=== PATIENT | female | born 1950 | race Caucasian/White ===

== ENCOUNTER 2017-06-01 14:03 | Observation (INO) ==
--- NOTE | 2017-06-01 14:28 | Emergency Department Note ---
Disposition Clinical Impression: Acute exacerbation of chronic obstructive pulmonary disease Disposition: Admitted As Inpatient Condition: Fair SOB HPI - General Chief Complaint: ED Shortness of Breath/Dyspnea Stated Complaint: short of breath Time Seen by Provider: 06/01/17 14:26 Source: patient Mode of arrival: EMS Limitations: no limitations Nursing Notes Reviewed: Yes Vital Signs Reviewed: Yes - History of Present Illness Patient presents to the ED via EMS with report of worsening shortness of breath. States she has been feeling more short of breath for 1 week, primarily with activity but it got worse today when she was showering and she felt short of breath while at rest. She has a long history of asthma and COPD and wears 3 L of oxygen continuously at home for the past 2-3 years. She also reports a productive cough for one week with yellow sputum along with rhinorrhea that is yellowish in color, nasal congestion and sneezing. She states she has chest tightness from her difficulty breathing but denies any chest pain. No orthopnea , PND or pedal edema. She reports a subjective fever this morning but no chills. She has had some nausea but no vomiting. No abdominal pain. No diarrhea or constipation. She reports compliance with her multiple COPD medications. States she has not been on oral steroids in several weeks. She does see a manager valuation and states that she had a recent PET scan because of an abnormality seen on her last chest x-ray but that the PET scan was normal. She was last hospitalized for a COPD exacerbation in January. - Related Data Home Medications Medication Instructions Recorded Confirmed Estradiol [Estrace] 1 mg PO DAILY 06/03/15 02/03/17 LORazepam [Ativan] 1 mg PO BID 06/03/15 02/03/17 Ropinirole HCl [Requip] 0.25 mg PO HS 07/03/15 02/03/17 Budesonide/Formoterol 160/4.5 2 puff IH BIDR 07/16/15 02/03/17 [Symbicort] Tiotropium [Spiriva] 1 cap IH DAILY 09/02/15 02/03/17 Cetirizine HCl [Zyrtec] 10 mg PO DAILY 05/24/16 02/03/17 Montelukast [Singulair] 10 mg PO DAILY 05/24/16 02/03/17 Albuterol Sulfate [Proair Hfa] 1 puff IH Q4H PRN 06/17/16 02/03/17 Roflumilast [Daliresp] 500 mcg PO DAILY 09/04/16 02/03/17 PredniSONE [Deltasone] 20 mg PO DAILY 02/02/17 02/03/17 Albuterol Neb [Proventil Neb] 2.5 mg IH TID 02/03/17 02/03/17 Aspirin 81 mg PO DAILY 02/03/17 02/03/17 Guaifenesin [Mucinex] 600 mg PO BID PRN 02/03/17 02/03/17 Sertraline [Zoloft] 100 mg PO DAILY 02/03/17 02/03/17 Previous Rx's Medication Instructions Recorded Ketorolac [Toradol] 10 mg PO Q6HR #15 tablet 01/16/17 Amlodipine Besylate 10 mg PO DAILY #30 tablet 02/06/17 Omeprazole [PriLOSEC] 40 mg PO BID #60 cap 02/06/17 levoFLOXacin [Levaquin] 750 mg PO DAILY #2 tablet 02/06/17 Allergies Allergy/AdvReac Type Severity Reaction Status Date / Time bupropion [From Wellbutrin] Allergy Unknown See Verified 02/02/17 20:19 Comments codeine AdvReac Nausea Verified 02/02/17 20:19 Constitutional: Denies: fever, chills, weakness, weight change Eyes: Denies: eye pain, eye discharge, vision change ENT ED: Reports: congestion. Denies: ear pain, throat pain, dental pain, hearing loss, epistaxis, dysphagia Cardiovascular: Reports: as per HPI, dyspnea on exertion. Denies: chest pain, palpitations, orthopnea, edema, syncope, paroxysmal nocturnal dyspnea Respiratory: Reports: as per HPI, cough, dyspnea, sputum production Gastrointestinal: Denies: abdominal pain, nausea, vomiting, diarrhea, constipation, hematemesis, melena, hematochezia Genitourinary: Denies: dysuria, frequency, hematuria, discharge Musculoskeletal: Denies: back pain, neck pain, arthralgia, myalgia Integumentary: Denies: rash, abrasion, lesions Neurological: Denies: headache, weakness, numbness, paresthesias, confusion, abnormal gait, vertigo Psychiatric: Denies: anxiety, depression, suicidal thoughts, homicidal thoughts , auditory hallucinations, visual hallucinations Endocrine: Denies: fatigue Hematological/Lymphatic: Denies: easy bleeding, easy bruising Allergic/Immunologic: Denies: facial swelling, urticaria Past Medical History - Past Medical History Medical history: Reports: arthritis, asthma, cardiomyopathy, COPD, GERD, hyperlipidemia, hypertension, kidney stones, osteoporosis, other Surgical history: Reports: appendectomy, cataract, cholecystectomy, hysterectomy , other Psychiatric history: Reports: anxiety, depression, other 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 Absent: lymphadenopathy - Chest Chest inspection: Present: normal inspection, symmetric chest wall rise - Respiratory Respiratory exam: Present: wheezes (faint, scattered). Absent: respiratory distress - Expanded Respiratory Exam Location: decreased breath sounds: Left, Right, Upper, Lower - Cardiovascular Cardiovascular exam: Present: regular rate, normal rhythm, normal heart sounds - Abdominal Exam Abdominal exam: Present: soft, Non-Tender. Absent: tenderness, distention, guarding, rebound, rigidity - Extremities Exam Extremities exam: Present: normal inspection, full ROM. Absent: tenderness, pedal edema - Back Exam Back exam: Present: normal inspection, full ROM. Absent: tenderness - Neurological Exam Neurological exam: Present: alert, oriented X3 - Psychiatric Psychiatric exam: Present: normal affect, normal mood - Skin Skin exam: Present: warm, dry, intact, normal color Course Course Narrative: Patient presents to the ED with increasing shortness of breath for 1 week along with URI symptoms of rhinorrhea, congestion and sneezing. She has had a productive cough. She is afebrile and hemodynamically stable on arrival. She does have diminished breath sounds throughout but has an oxygen saturation 95% on 2 L. She reports no improvement with DuoNeb her seat by EMS. Will given additional DuoNeb as well as IV steroids. Will obtain chest x-ray. I suspect primarily simple COPD exacerbation versus less likely pneumonia. Low suspicion for any cardiac pathology given patient's lack of history and current presentation most consistent with COPD. - Reevaluation(s) Reevaluation #1: On reevaluation patient continues to show no respiratory distress and has maintained oxygen saturations in the mid 90s on 2-1/2 L. Chest x-ray did not show any evidence of pneumonia. Patient's lung exam reveals some improved aeration but still diffuse wheezing. Discussed with patient the benefit of hospitalization for continued steroids, nebulizer treatment and antibiotics to which she has agreed. I spoke to the hospitalist on-call, Dr. Meza who has agreed to admit the patient. He did request basic labs and ABG which will be performed. We will make arrangements for admission. Time: 15:45 Vital Signs Temperature 98 F 06/01/17 14:05 Pulse Rate 91 06/01/17 14:05 Respiratory Rate 20 06/01/17 14:05 Blood Pressure 158/79 06/01/17 14:05 O2 Sat by Pulse Oximetry 98 06/01/17 14:05 Temperature 98 F 06/01/17 14:05 Pulse Rate 91 06/01/17 15:23 Respiratory Rate 18 06/01/17 15:23 Blood Pressure 140/79 06/01/17 15:23 O2 Sat by Pulse Oximetry 96 06/01/17 15:23 Shortness of Breath/Dyspnea - Differential Diagnosis Likely: acute exacerbation of chronic obstructive airways disease, pneumonia, asthma with exacerbation - Medical Records Medical records reviewed: Yes I reviewed the patient's medical records. - Lab Data Result diagrams: 06/01/17 15:15 06/01/17 15:15 Lab Results 06/01/17 06/01/17 06/01/17 Range/Units 15:15 15:15 16:25 WBC 6.6 (4.3-11.1) K/mcL RBC 3.46 L (3.82-4.97) M/mcL Hgb 9.9 L (11.5-15.4) g/dL Hct 30.8 L (35.3-44.9) % MCV 89.0 (83.0-100.0) fL MCH 28.6 (28.0-33.3) pg MCHC 32.1 (31.6-35.5) g/dL RDW 14.3 (11.5-14.5) % Plt Count 258 (140-400) K/mcL MPV 9.7 (9.4-12.4) fL Immature Gran % 0.2 (0-4) % Seg Neutrophils % 67.3 % Lymphocytes % 20.6 % Monocytes % 9.3 % Eosinophils % 2.4 % Basophils % 0.2 % Neutrophils # 4.4 (1.6-8.9) K/mcL Lymphocytes # 1.4 (0.6-4.6) K/mcL Monocytes # 0.6 (0.0-1.3) K/mcL Eosinophils # 0.2 (0.0-0.6) K/mcL Basophils # 0.0 (0.0-0.2) K/mcL ABG pH 7.36 (7.32-7.45) pH Units ABG pCO2 69 H (35-45) mmHg ABG pO2 86 (85-104) mmHg ABG HCO3 38.7 H (21-27) mEQ/L ABG Total CO2 40.8 H (20-26) mEq/L ABG O2 Saturation 96 (95-98) % ABG Base Excess 13.3 H (-2.0 to 3.0) mEq/L Liter Flow 2 L/MIN Blood Gas Modality NC Inspired O2 28 % Sodium 140 (136-145) mEq/L Potassium 4.2 (3.5-4.5) mEq/L Chloride 96 L (98-109) mEq/L Carbon Dioxide 35 H (19-29) mEq/L BUN 10 (7-20) mg/dL Creatinine 0.68 (0.57-1.11) mg/dL Est GFR ( Amer) > 60 (> 60) Est GFR (Non-Af Amer) > 60 (> 60) BUN/Creatinine Ratio 15 (6-26) Glucose 103 H (70-99) mg/dL Calculated Osmolality 289 (280-300) Calcium 9.5 (8.6-10.8) mg/dL - Radiology Data Radiology results reviewed: Yes I reviewed the patient's radiology results. ITS Impressions Chest X-Ray 06/01/17 14:42 IMPRESSION: No acute process. D/ / Thierry Pelaez MD / Thierry Pelaez MD Interpreting Provider: Thierry Pelaez MD - EKG Data EKG attestation: Yes I reviewed and interpreted this EKG. EKG shows normal: Reports: sinus rhythm Rate: Reports: normal Rhythm: Reports: NSR [place]/QRS: Reports: normal Interpretation: Reports: no acute changes, normal EKG
[2017-06-01] MEDS ORDERED: methylPREDNISolone 125 MG/2 ML VIAL IVP STA (14:42)
[2017-06-01] MEDS ORDERED: Ipratropium/Albuterol Neb 3 ML IH ONE (14:42)
[2017-06-01] MEDS ORDERED: Naloxone 0.4 MG/ML INJ IVP PRN ×2 (15:50→17:32)
[2017-06-01 15:51] LABS: Basophils % 0.2 %; Eosinophils # 0.2 K/mcL (0.0-0.6); Eosinophils % 2.4 %; Hematocrit 30.8 % (35.3-44.9); Hemoglobin 9.9 g/dL (11.5-15.4); Immature Granulocytes % 0.2 % (0-4); Lymphocytes # 1.4 K/mcL (0.6-4.6); Lymphocytes % 20.6 %; Mean Corpuscular HGB Conc 32.1 g/dL (31.6-35.5); Mean Corpuscular Hemoglobin 28.6 pg (28.0-33.3); Mean Platelet Volume 9.7 fL (9.4-12.4); Monocytes # 0.6 K/mcL (0.0-1.3); Monocytes % 9.3 %; Neutrophils # 4.4 K/mcL (1.6-8.9); Platelet Count 258 K/mcL (140-400); Red Blood Count 3.46 M/mcL (3.82-4.97); Red Cell Distribution Width 14.3 % (11.5-14.5); Segmented Neutrophils % 67.3 %
[2017-06-01] MEDS ORDERED: Ipratropium/Albuterol Neb 3 ML IH SCH (16:00)
[2017-06-01] MEDS ORDERED: Levofloxacin 750 MG/150 ML 750 MG/150 ML BAG IVPB SCH (16:00)
[2017-06-01 16:02] LABS: BUN/Creatinine Ratio 15 (6-26); Blood Urea Nitrogen 10 mg/dL (7-20); Calcium 9.5 mg/dL (8.6-10.8); Carbon Dioxide 35 mEq/L (19-29); Chloride 96 mEq/L (98-109); Glucose 103 mg/dL (70-99); Osmolality,Calculated 289 (280-300); Potassium 4.2 mEq/L (3.5-4.5); Sodium 140 mEq/L (136-145); eGFR For African Americans > 60 (> 60); eGFR For Non-African Americans > 60 (> 60)
--- NOTE | 2017-06-01 16:16 | Electrocardiograph Report ---
[address] [address] Test Date: 2017-06-01 Pat Name: Loreto Davila Department: 2000 Room: Gender: F Bead Filler: : 1950 Requested By: Giselle Heller Order Number: [id number] Reading MD: Kelvin Mi MD Measurements Intervals [place] Rate: 87 P: 83 CT: 144 QRS: 75 QRSD: 80 T: 79 QT: 356 QTc: 400 Interpretive Statements SINUS RHYTHM BASELINE ARTIFACT Electronically Signed On 06-01-2017 16:15:07 EDT by Kelvin Mi MD
[2017-06-01 16:32] LABS: ABG Base Excess 13.3 mEq/L (-2.0 to 3.0); ABG HCO3 38.7 mEQ/L (21-27); ABG PCO2 69 mmHg (35-45); ABG PH 7.36 pH Units (7.32-7.45); ABG PO2 86 mmHg (85-104); ABG TCO2 40.8 mEq/L (20-26)
[2017-06-01 16:33] LABS: ABG Oxygen Saturation 96 % (95-98); Blood Gas FiO2 28 %; Blood Gas Liter Flow 2 L/MIN
[2017-06-01] MEDS: Budesonide/Formoterol 160/4.5 MDI IH SCH (20:39)
[2017-06-01] MEDS: *HR* LORazepam 1 MG TABLET PO SCH (20:40)
[2017-06-01] MEDS: rOPINIRole 0.25 MG TABLET PO SCH (20:40)
[2017-06-01] MEDS: Ipratropium/Albuterol Neb 3 ML IH SCH (20:41)
[2017-06-02] MEDS: Ipratropium/Albuterol Neb 3 ML IH SCH ×6 (00:15→20:40)
[2017-06-02] MEDS: Acetaminophen 325 MG TABLET PO PRN ×3 (07:21→20:39)
--- NOTE | 2017-06-02 07:50 | Internal Med History&Physical ---
Date of Encounter: 06/02/17 Time of Encounter: 07:47 Assessment and Plan (1) Acute exacerbation of chronic obstructive pulmonary disease Current visit: Yes Status: Acute White female with a history of COPD home oxygen dependent was admitted with acute exacerbation of COPD her ABG for baseline. There have been no increase in her use of oxygen. Then admitted to the acute medical floor with them treatment with IV antibiotics and prednisone will continue her nebulizer treatment also had some calcium and vitamin D since she had been taking steroids quite frequently in the past as well. Patient states that she receives her for vaccinations regularly. I would need she is not sure if she had received flue vaccination every year wll need to assess her needs for pneumovoax . (2) HTN (hypertension) Current visit: No Status: Chronic Patient has a history of hypertension on Norvasc will continue her medications and follow. Qualifiers: Hypertension type: essential hypertension Qualified Code(s): I10 - Essential (primary) hypertension (3) GERD (gastroesophageal reflux disease) Current visit: Yes Status: Chronic Patient has a history of God. She is on PPI. Will continue to monitor. Qualifiers: Esophagitis presence: without esophagitis Qualified Code(s): K21.9 - Gastro -esophageal reflux disease without esophagitis (4) Depression with anxiety Current visit: No Status: Chronic Here the history of depression was someone's identity. She is on Zoloft. At the present time she is not suicidal or homicidal. She has a baseline. We continue present medication (5) Anemia due to chronic blood loss Current visit: No Status: Acute Noted to have a low hemoglobin (19. Apparently she had a history of GL loss. She had come to put colonoscopies but no site was was found. The present time hemoglobin is baseline. Iron supplements in the past. Internal Medicine - H&P: HPI Admitted From: Home History of present illness: Ms. Davila is a 66 year old female with a significant history of COPD oxygen dependent at home started complaining of increasing shortness of breath and count for the last few days. She denied any fever however felt hot. No complaints of chest pains nausea vomiting or diarrhea. Complains of exposure to any sick people around. The shortness of breath with progressive in nature with increasing cough and difficulty walking short distances. Denied any orthopnea no no complain of leg swelling. Last afternoon she decided to come to the ED and was admitted her coffee is usually productive with yellow color sputum no blood noted. Past Med Surg Social Fam HX - Past Medical History Medical history: arthritis, asthma, cardiomyopathy, COPD, GERD, hyperlipidemia, hypertension, kidney stones, osteoporosis, other Psychiatric history: anxiety, depression, other - Past Surgical History Surgical History: appendectomy, cataract, cholecystectomy, hysterectomy, other - Social History Smoking Status: Former smoker Smokeless Tobacco Status: No Alcohol use: none, unknown Drug use: none, unknown - Family History Mother Adopted: No Family Member Ethnicity: Non- Living Status: Hx Family Cardiac Disorders: Yes (Heart murmor, HTN) Hx Family Respiratory Disorders: No Hx Family Cancer: Yes (skin cancer) Hx Family GI Disorders: No Hx Family Endocrine Disorder: No Hx Family Neuromuscular Disorders: No Hx Family Neurologic Disorders: No Hx Family HEENT Disorders: No Hx Family Autoimmune Disorders: No Brother Living Status: Hx Family Cardiac Disorders: Yes Hx Family Respiratory Disorders: Yes Hx Family Cancer: No Hx Family GI Disorders: No Hx Family Endocrine Disorder: Yes Hx Family Neuromuscular Disorders: No Hx Family Neurologic Disorders: No Hx Family HEENT Disorders: No Hx Family Autoimmune Disorders: No Internal Medicine - H&P: Meds Estradiol [Estrace] 1 mg PO DAILY 06/03/15 [History] LORazepam [Ativan] 1 mg PO BID 06/03/15 [History] Ropinirole HCl [Requip] 0.25 mg PO HS 07/03/15 [History] Budesonide/Formoterol 160/4.5 [Symbicort] 2 puff IH BIDR 07/16/15 [History] Tiotropium [Spiriva] 1 cap IH DAILY 09/02/15 [History] Cetirizine HCl [Zyrtec] 10 mg PO DAILY 05/24/16 [History] Montelukast [Singulair] 10 mg PO DAILY 05/24/16 [History] Albuterol Sulfate [Proair Hfa] 1 puff IH Q4H PRN 06/17/16 [History] Roflumilast [Daliresp] 500 mcg PO DAILY 09/04/16 [History] Ketorolac [Toradol] 10 mg PO Q6HR #15 tablet 01/16/17 [Rx] PredniSONE [Deltasone] 20 mg PO DAILY 02/02/17 [History] Albuterol Neb [Proventil Neb] 2.5 mg IH TID 02/03/17 [History] Aspirin 81 mg PO DAILY 02/03/17 [History] Guaifenesin [Mucinex] 600 mg PO BID PRN 02/03/17 [History] Sertraline [Zoloft] 100 mg PO DAILY 02/03/17 [History] Amlodipine Besylate 10 mg PO DAILY #30 tablet 02/06/17 [Rx] Omeprazole [PriLOSEC] 40 mg PO BID #60 cap 02/06/17 [Rx] levoFLOXacin [Levaquin] 750 mg PO DAILY #2 tablet 02/06/17 [Rx] Allergies bupropion [From Wellbutrin] Allergy (Unknown, Verified 02/02/17 20:19) See Comments unknown codeine Adverse Reaction (Verified 02/02/17 20:19) Nausea All Systems PM: A 10-system review of systems was performed and is negative for pertinent findings except as documented above in the HPI. - Constitutional Constitutional: chills, excessive sweating, fatigue, lethargy, night sweats, no anorexia, no fever(s), no falls, no malaise, no weight gain - EENT Eyes: no blurry vision, no discharge, no photophobia Ears: no decreased hearing, no ear discharge, no tinnitus Nose, mouth and throat: no dry mouth, no dysphagia, no epistaxis, no mouth pain - Breasts Additional comments: She has a history of biopsy on her left breast. Last mammography done about a year ago was within normal range. - Cardiovascular Cardiovascular ROS IM: dyspnea, dyspnea on exertion, lightheadedness, no chest pain, no claudication, no diaphoresis, no edema, no orthopnea, no palpitations, no syncope - Respiratory Respiratory: cough, dyspnea, dyspnea on exertion, wheezing, excessive phlegm production, change in phlegm color, no hemoptysis, no snoring, no pain on inspiration, no chest congestion, no pain with cough - Gastrointestinal Gastrointestinal: heartburn, no abdominal pain, no belching, no bloating, no change in bowel habits, no change in stool character, no coffee ground emesis, no constipation, no diarrhea, no dyspepsia, no loose stools, no melena Additional comments: She was started on iron pills may change stool color. She denies any melena. - Genitourinary Genitourinary: no abnormal menses, no abnormal vaginal bleeding, no breast mass , no breast pain, no difficulty urinating, no difficulty voiding, no nipple discharge Additional comments: She is status post hysterectomy and oopherectomy - Musculoskeletal Musculoskeletal ROS IM: arthralgias, back pain, muscle cramps, no deformity, no joint swelling, no limited range of motion, no muscle weakness, no myalgias, no stiffness - Integumentary Integumentary IM: no erythema, no new lesions - Neurological Neurological ROS: headache(s), no dizziness, no focal weakness, no lack of coordination, no loss of vision, no memory loss, no numbness, no paresthesias, no tingling, no tremor(s) Additional comments: She complaints of headache this morning. This headache is not unusual and there is no change in characteristics. She states that she usually takes Tylenol which she leaves her headache. There are no other associated neurological symptoms with headaches. - Psychiatric Additional comments: She has history of depression and is on Zoloft for it. She f her motives baselined she denies any suicidal or homicidal ideation. - Constitutional Vitals: Temp Pulse Resp BP Pulse Ox 97.5 F L 79 18 164/82 97 06/02/17 07:35 06/02/17 07:35 06/02/17 07:35 06/02/17 07:35 06/02/17 07:35 General appearance: Present: cooperative, A&O X 3, pleasant. Absent: no acute distress, underweight, loss of weight - Head Head exam: Present: normal inspection Additional comments: Complaints of mild headache. No local tenderness appreciated. No scalp tenderness on appreciated. No temporal properties. - Eye Eye exam: Present: EOMI, PERRL - ENT ENT exam: Present: mucous membranes moist, normal exam - Neck Neck exam general surgery: Present: normal inspection, supple. Absent: lymphadenopathy, tenderness, nuchal rigidity - Respiratory Respiratory exam: Present: decreased breath sounds, rhonchi, wheezes. Absent: accessory muscle use, chest wall tenderness, prolonged expiratory phase, rales, respiratory distress, stridor, tachypnea Additional comments: There is no evidence of any cyanosis. She is living comfortably in bed with the nasal cannula. Her air entry is supported on both sides are mild veins and mild breeze on rt 8 entry is equal on both sides of lungs in all areas. . - Cardiovascular Cardiovascular exam: Present: RRR. Absent: diastolic murmur, distant heart sounds, gallop, JVD, rubs, tachycardia - GI/Abdominal GI/Abdominal exam: Present: normal bowel sounds, soft. Absent: distended, firm , guarding, pulsatile mass, rigid, tenderness - Rectal Rectal exam: Present: deferred - Additional comments: Examination deferred at the present time. She is not having any symptoms of complaints - Extremities Exam Extremities exam: Present: full ROM, normal capillary refill. Absent: cyanotic , joint swelling, mottling, pedal edema, tenderness Additional comments: Fuel ecchymosis seen on her left arm no evidence of any lymphadenopathy harbor or bruising other part of the body. - Back Exam Additional comments: Mild tenderness and and sees 67 area. There are no evidence of any paravertebral muscle spasms. Similarly she has mild tenderness of the lower back as well on percussion. No associated muscular spasms and surrounding areas. Patently this back pain has been present for some time. No evidence of any neurological deficit noted. - Neurological Exam Neurological exam: Present: alert, CN II-XII intact, motor sensory deficit, oriented X3, reflexes normal, strengths equal and symetr throughout. Absent: no focal deficits, facial droop, speech deficit - Psychiatric Psychiatric exam: Present: normal mood. Absent: anxious, depressed, flat affect , homicidal ideation, manic, normal affect, suicidal ideation Additional comments: She seems to be in decent mode. Denied any homicidal or suicidal ideation. She does have a history of depression on which she takes medications. Internal Med - H&P Results - Labs CBC & Chem 7: 06/01/17 15:15 06/01/17 15:15 - VTE Reasons for not Prescribing Prophylaxis: Treatment not Indicated - Low risk for VTE
[2017-06-02] MEDS ORDERED: Calcium Acetate 667 MG CAPSULE PO SCH (08:00)
[2017-06-02] MEDS ORDERED: Levofloxacin 750 MG/150 ML 750 MG/150 ML BAG IVPB SCH ×2 (09:00)
[2017-06-02] MEDS: amLODIPine 5 MG TABLET PO SCH (09:26)
[2017-06-02] MEDS: Loratadine 10 MG TABLET PO SCH (09:26)
[2017-06-02] MEDS: Cholecalciferol (D-3) 1,000 UNIT TABLET PO SCH (09:26)
[2017-06-02] MEDS: predniSONE 20 MG TABLET PO SCH ×2 (09:27→20:40)
[2017-06-02] MEDS: Levofloxacin 750 MG/150 ML 750 MG/150 ML BAG IVPB SCH (09:27)
[2017-06-02] MEDS: *HR* LORazepam 1 MG TABLET PO SCH ×2 (09:27→20:40)
[2017-06-02] MEDS: Tiotropium 18 MCG inhalation IH SCH (09:28)
[2017-06-02] MEDS: Aspirin 81 MG TAB.CHEW PO SCH (09:28)
[2017-06-02] MEDS: Budesonide/Formoterol 160/4.5 MDI IH SCH ×2 (09:29→21:45)
[2017-06-02] MEDS: Patient Taking Own Medication 1 EACH PO SCH (10:02)
[2017-06-02] MEDS: rOPINIRole 0.25 MG TABLET PO SCH (20:40)
[2017-06-03] MEDS: Ipratropium/Albuterol Neb 3 ML IH SCH ×3 (01:23→09:18)
[2017-06-03 05:40] LABS: Hematocrit 31.6 % (35.3-44.9); Hemoglobin 10.1 g/dL (11.5-15.4); Immature Granulocytes % 0.6 % (0-4); Lymphocytes # 0.6 K/mcL (0.6-4.6); Lymphocytes % 8.6 %; Mean Corpuscular Hemoglobin 28.2 pg (28.0-33.3); Mean Corpuscular Volume 88.3 fL (83.0-100.0); Mean Platelet Volume 9.6 fL (9.4-12.4); Monocytes # 0.3 K/mcL (0.0-1.3); Monocytes % 4.6 %; Platelet Count 257 K/mcL (140-400); Red Blood Count 3.58 M/mcL (3.82-4.97); Red Cell Distribution Width 14.5 % (11.5-14.5); Segmented Neutrophils % 86.2 %
--- NOTE | 2017-06-03 07:58 | Discharge Summary ---
Date of Encounter: 06/03/17 Time of Encounter: 07:55 - Discharge Diagnosis (1) Acute exacerbation of chronic obstructive pulmonary disease Priority: Primary Status: Acute Comments: COPD exacerbation. Patient was admitted with increasing shortness of breath increasing cough and B's. She was treated for community acquired pneumonia nebulizers and with steroids. Excellent. She is on 3 L of oxygen which is his base line dose. She is ready to be discharged and back to her baseline. She will continue her antibiotic for another 3 to 4 days. Oral steroids in tapering dose. Followup with PC in week time . Patient is not sure that if she has received an Pneumovax vaccination. Since I do not have any records how would I had advised patient to discuss this with her housefellow she is a candidate for Pneumovax..Since she is on steroid tapering dose Calcium and VIt D added . 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 (2) HTN (hypertension) Priority: Secondary Status: Chronic Comments: High blood pressure has been slightly high today. She is taking Norvasc. At the present time he will recheck of blood pressure and if needed a small dose of diuretic can be added as an outpatient. I will certainly leave it for her PC to make further adjustments as needed. Qualifiers: Hypertension type: essential hypertension Qualified Code(s): I10 - Essential (primary) hypertension (3) GERD (gastroesophageal reflux disease) Priority: Secondary Status: Chronic Comments: GERD stable on present medications. Qualifiers: Esophagitis presence: without esophagitis Qualified Code(s): K21.9 - Gastro -esophageal reflux disease without esophagitis (4) Depression with anxiety Priority: Secondary Status: Chronic Comments: Stable no change in her medications (5) Anemia due to chronic blood loss Priority: Secondary Status: Acute Comments: Stable On iron - Discharge Medications Home Medications: Estradiol [Estrace] 1 mg PO DAILY 06/03/15 [History] LORazepam [Ativan] 1 mg PO BID 06/03/15 [History] Ropinirole HCl [Requip] 0.25 mg PO HS 07/03/15 [History] Budesonide/Formoterol 160/4.5 [Symbicort] 2 puff IH BIDR 07/16/15 [History] Tiotropium [Spiriva] 1 cap IH DAILY 09/02/15 [History] Cetirizine HCl [Zyrtec] 10 mg PO DAILY 05/24/16 [History] Montelukast [Singulair] 10 mg PO DAILY 05/24/16 [History] Albuterol Sulfate [Proair Hfa] 1 puff IH Q4H PRN 06/17/16 [History] Roflumilast [Daliresp] 500 mcg PO DAILY 09/04/16 [History] Albuterol Neb [Proventil Neb] 2.5 mg IH TID 02/03/17 [History] Aspirin 81 mg PO DAILY 02/03/17 [History] Guaifenesin [Mucinex] 600 mg PO BID PRN 02/03/17 [History] Sertraline [Zoloft] 100 mg PO DAILY 02/03/17 [History] Amlodipine Besylate 10 mg PO DAILY #30 tablet 02/06/17 [Rx] Omeprazole [PriLOSEC] 40 mg PO BID #60 cap 02/06/17 [Rx] Calcium Acetate [Phos-LO] 667 mg PO TIDWM 06/03/17 [Rx] Cholecalciferol (D-3) [Vitamin D] 1,000 unit PO DAILY tab 06/03/17 [Rx] levoFLOXacin [Levaquin] 750 mg PO DAILY #2 tablet 06/03/17 [Rx] predniSONE [PredniSONE] 20 mg PO BIDWM tab 06/03/17 [Rx] Allergies/Adverse Reactions: Allergies bupropion [From Wellbutrin] Allergy (Unknown, Verified 02/02/17 20:19) See Comments unknown codeine Adverse Reaction (Verified 02/02/17 20:19) Nausea - Notes to Outpatient Provider Tappering dose of Steriod and Antibiotics for 5 more days Calcium and VIt D added She needs to be assessed for the need of Pneumovax Date of admission: 06/01/17 16:40 Primary care physician: William Corrigan CNP Discharging clinician: Antoinette Meza Anticipated date of discharge: 06/03/17 - Patient Status Disposition: Home, Self-Care Condition: Fair Functional capacity at discharge: independent ambulation Overall status at discharge: patient is back to baseline - Discharge Instructions Instructions: Acute Respiratory Distress Syndrome (DC), Chronic Obstructive Pulmonary Disease (DC) Follow Up With: William Corrigan CNP [Primary Care Provider] - - Diet and Activity Diet: advance to your usual diet Interval History: Her hospital course was unremarkable. Was treated aggressively with breathing treatments IV antibiotics and steroids. Her blood cultures were negative. At the present time she is back to her baseline. Walk without any shortness of breath. I bienvenido discussed in lenght about her need to do some pulmunary exercises . she is to continue her home medications. Hospital course: Ms. Davila is a 66 year old female - Time Spent with Patient Total time spent providing and/or coordinating discharge services: - Constitutional Vitals: Temp Pulse Resp BP Pulse Ox 98.4 F 94 17 165/77 98 06/03/17 07:31 06/03/17 07:31 06/03/17 07:31 06/03/17 07:31 06/03/17 07:31 General appearance: Present: cooperative, A&O X 3, pleasant. Absent: no acute distress, underweight, loss of weight - Head Head exam: Present: normocephalic - ENT ENT exam: Present: mucous membranes moist, normal external ear exam, normal oropharynx - Respiratory Respiratory exam: Present: decreased breath sounds, wheezes. Absent: chest wall tenderness, respiratory distress, rhonchi, stridor Additional comments: Her air entry is equal on both sides but decreased. There are mild area on left middle area. No rales or crackles . No cynosis - Cardiovascular Cardiovascular exam: Present: RRR. Absent: JVD - GI/Abdominal GI/Abdominal exam: Present: normal bowel sounds, soft. Absent: guarding, rebound, rigid - Neurological Exam Neurological exam: Present: altered, CN II-XII intact, motor sensory deficit, normal gait, oriented X3, no focal deficits, strengths equal and symetr throughout - VTE Reasons for not Prescribing Prophylaxis: Treatment not Indicated - Low risk for VTE
[2017-06-03] MEDS: Levofloxacin 750 MG/150 ML 750 MG/150 ML BAG IVPB SCH (09:16)
[2017-06-03] MEDS: Aspirin 81 MG TAB.CHEW PO SCH (09:18)
[2017-06-03] MEDS: predniSONE 20 MG TABLET PO SCH (09:19)
[2017-06-03] MEDS: Cholecalciferol (D-3) 1,000 UNIT TABLET PO SCH (09:19)
[2017-06-03] MEDS: Loratadine 10 MG TABLET PO SCH (09:19)
[2017-06-03] MEDS: *HR* LORazepam 1 MG TABLET PO SCH (09:19)
[2017-06-03] MEDS: amLODIPine 5 MG TABLET PO SCH (09:19)
[2017-06-03] MEDS: Patient Taking Own Medication 1 EACH PO SCH (09:19)
[2017-06-03] MEDS: Budesonide/Formoterol 160/4.5 MDI IH SCH (09:21)
[2017-06-03] MEDS: Tiotropium 18 MCG inhalation IH SCH (09:22)
[2017-06-03 11:32] VITALS: BP 163/82
== END 2017-06-03 12:12 | disposition home or self-care (01) ==
LOC: EMEROOGRE 14:03 → INPGRE 14:03
PROVIDERS: ADMIT Internal Medicine; ATTEND Internal Medicine

== ENCOUNTER 2018-02-10 17:15 | Observation (INO) ==
[2018-02-10] MEDS ORDERED: Ipratropium/Albuterol Neb 3 ML IH ONE ×3 (17:42)
[2018-02-10] MEDS ORDERED: MethylPREDNISolone 40 MG/ML VIAL IVP ONE (17:44)
--- NOTE | 2018-02-10 18:06 | Emergency Department Note ---
Disposition Clinical Impression: COPD (chronic obstructive pulmonary disease) with chronic bronchitis Disposition: Admitted As Inpatient Condition: Fair Instructions: Chronic Obstructive Pulmonary Disease (ED) Referrals: NONE,PCP [Primary Care Provider] - Forms: ED Satisfaction Letter Time of Disposition: 21:40 SOB HPI - General Chief Complaint: ED Shortness of Breath/Dyspnea Stated Complaint: Shortness of Breath Time Seen by Provider: 02/10/18 17:35 Source: patient Limitations: no limitations Nursing Notes Reviewed: Yes Vital Signs Reviewed: Yes - History of Present Illness For the last 2 days or so Miss Davila has felt more more short of breath especially on exertion. She feels some chest tightness as though she cannot expand her chest. She has had a slight cough which is unproductive. She feels as though there is some sputum that she would like to produce but cannot. No palpitations no fever no chills no dizziness no lightheadedness no acute upper respiratory symptoms no muscle aches no fever no chills. She feels as though this is like a typical flareup of her COPD. She typically wears 3 L at home. Pt Subjective Complaint: shortness of breath - Related Data Home Medications Medication Instructions Recorded Confirmed Estradiol [Estrace] 1 mg PO DAILY 06/03/15 02/10/18 LORazepam [Ativan] 1 mg PO BID 06/03/15 02/10/18 Ropinirole HCl [Requip] 0.25 mg PO HS 07/03/15 02/10/18 Budesonide/Formoterol 160/4.5 2 puff IH BIDR 07/16/15 02/10/18 [Symbicort] Tiotropium [Spiriva] 1 cap IH DAILY 09/02/15 02/10/18 Cetirizine HCl [Zyrtec] 10 mg PO DAILY 05/24/16 02/10/18 Montelukast [Singulair] 10 mg PO DAILY 05/24/16 02/10/18 Albuterol Sulfate [Proair Hfa] 1 puff IH Q4H PRN 06/17/16 02/10/18 Roflumilast [Daliresp] 500 mcg PO DAILY 09/04/16 02/10/18 Albuterol Neb [Proventil Neb] 2.5 mg IH TID 02/03/17 02/10/18 Guaifenesin [Mucinex] 600 mg PO BID PRN 02/03/17 02/10/18 Sertraline [Zoloft] 100 mg PO DAILY 02/03/17 02/10/18 Previous Rx's Medication Instructions Recorded Amlodipine Besylate 10 mg PO DAILY #30 tablet 02/06/17 Omeprazole [PriLOSEC] 40 mg PO BID #60 cap 02/06/17 Cholecalciferol (D-3) [Vitamin D] 1,000 unit PO DAILY tab 06/03/17 Meclizine [Antivert] 25 mg PO TID #30 tablet 01/07/18 Allergies Allergy/AdvReac Type Severity Reaction Status Date / Time bupropion [From Wellbutrin] Allergy Unknown See Verified 02/10/18 20:10 Comments codeine AdvReac Nausea Verified 02/10/18 20:10 Constitutional: Denies: fever, chills ENT ED: Reports: congestion (She has had some runny nose for about a week or so) Cardiovascular: Reports: dyspnea on exertion. Denies: chest pain, palpitations Respiratory: Reports: cough, dyspnea. Denies: sputum production Gastrointestinal: Denies: nausea, vomiting Musculoskeletal: Denies: myalgia Integumentary: Denies: rash Neurological: Denies: headache Endocrine: Reports: fatigue Hematological/Lymphatic: Denies: easy bruising Past Medical History - Past Medical History Medical history: Reports: arthritis, asthma, cardiomyopathy, COPD, GERD, hyperlipidemia, hypertension, kidney stones, osteoporosis, other Surgical history: Reports: appendectomy, cataract, cholecystectomy, hysterectomy , other Psychiatric history: Reports: anxiety, depression, other [employer] history: Reports: no [employer] history - Social History Smoking Status: Former smoker Smokeless Tobacco Status: No Alcohol use: Reports: none Drug use: Reports: none Physical Exam - General Limitations: no limitations General appearance: alert, in no apparent distress - Head Head exam: atraumatic, normocephalic - Eye Eye exam: Present: normal appearance - ENT ENT exam: normal oropharynx, mucous membranes moist, other (Nasal cannula in place) - Neck Neck exam: Present: normal inspection. Absent: lymphadenopathy - Chest Chest inspection: Present: normal inspection, symmetric chest wall rise - Respiratory Respiratory exam: Present: wheezes (End expiratory wheezes symmetrically bilaterally with fair air exchange) - Cardiovascular Cardiovascular exam: Present: regular rate, normal rhythm, normal heart sounds. Absent: systolic murmur, diastolic murmur - Abdominal Exam Abdominal exam: Present: soft, Non-Tender - Extremities Exam Extremities exam: Present: normal inspection. Absent: pedal edema, calf tenderness (No calf edema cord or erythema) - Neurological Exam Neurological exam: Present: alert - Psychiatric Psychiatric exam: Present: normal affect, normal mood - Skin Skin exam: Present: warm, dry Course Vital Signs Temperature 99.2 F 02/10/18 17:21 Pulse Rate 91 02/10/18 17:21 Respiratory Rate 28 02/10/18 17:21 Blood Pressure 124/98 02/10/18 17:21 O2 Sat by Pulse Oximetry 98 02/10/18 17:21 Temperature 99.2 F 02/10/18 17:21 Pulse Rate 106 02/10/18 19:57 Respiratory Rate 20 02/10/18 18:28 Blood Pressure 167/82 02/10/18 19:57 O2 Sat by Pulse Oximetry 90 02/10/18 19:57 Oxygen Delivery Oxygen Delivery Nasal Cannula Shortness of Breath/Dyspnea - [facility] Narrative Medical decision making narrative: COPD exacerbation. She reported mild subjective relief after her nebulized treatment here in the emergency department. Her saturations were 91-92% on 2 L. She was decreased from 3 as she did show some evidence of CO2 retention on her venous blood gas. On standing and taking 2 or 3 steps however she did desaturate into the mid to high 80s with increased work of breathing. It might be best to keep her here in the hospital where she does not need to exert herself until the steroids and nebulized treatments get her back to her baseline. She is in agreement. I spoke with the covering hospitalist and presented the case. He accepted admission. Ms. Diallo is in stable condition on transfer to the floor. - Medical Records Medical records reviewed: Yes I reviewed the patient's medical records. - Lab Data Lab results reviewed: Yes I reviewed the patient's lab results. Result diagrams: 02/10/18 18:25 02/10/18 18:25 Lab Results 02/10/18 02/10/18 02/10/18 Range/Units 18:15 18:25 18:25 WBC (4.3-11.1) K/mcL RBC (3.82-4.97) M/mcL Hgb (11.5-15.4) g/dL Hct (35.3-44.9) % MCV (83.0-100.0) fL MCH (28.0-33.3) pg MCHC (31.6-35.5) g/dL RDW (11.5-14.5) % Plt Count (140-400) K/mcL MPV (9.4-12.4) fL Immature Gran % (0-4) % Seg Neutrophils % % Lymphocytes % % Monocytes % % Eosinophils % % Basophils % % Neutrophils # (1.6-8.9) K/mcL Lymphocytes # (0.6-4.6) K/mcL Monocytes # (0.0-1.3) K/mcL Eosinophils # (0.0-0.6) K/mcL Basophils # (0.0-0.2) K/mcL D-Dimer 526 H (0-500) ng/mLFEU VBG pH (7.32-7.42) pH Units VBG pCO2 (41-51) mmHg VBG pO2 (25-50) mmHg VBG HCO3 (21-27) mEq/L Sodium 137 (136-145) mEq/L Potassium 3.4 L (3.5-5.1) mEq/L Chloride 95 L (98-107) mEq/L Carbon Dioxide 35 H (23-29) mEq/L BUN 13 (8-23) mg/dL Creatinine 0.77 (0.60-1.20) mg/dL Est GFR ( Amer) > 60 (> 60) Est GFR (Non-Af Amer) > 60 (> 60) BUN/Creatinine Ratio 17 (6-26) Glucose 120 H (70-105) mg/dL Calculated Osmolality 285 (280-300) Lactic Acid 0.6 (0.5-2.2) mmol/L Calcium 10.4 H (8.6-10.3) mg/dL Magnesium 1.7 (1.6-2.6) mg/dL Total Bilirubin 0.3 (0.3-1.0) mg/dL AST 17 (13-39) Units/L ALT 15 (7-52) Units/L Alkaline Phosphatase 62 (34-104) Units/L Troponin I < 0.03 (< 0.04) ng/mL B-Natriuretic Peptide (Less than 100) pg/mL Serum Total Protein 6.6 (6.4-8.9) g/dL Albumin 4.0 (3.5-5.7) g/dL Globulin 2.6 (2.4-3.5) g/dL Albumin/Globulin Ratio 1.5 (1.1-2.2) 02/10/18 02/10/18 02/10/18 Range/Units 18:25 18:25 18:41 WBC 6.5 (4.3-11.1) K/mcL RBC 3.67 L (3.82-4.97) M/mcL Hgb 10.8 L (11.5-15.4) g/dL Hct 32.8 L (35.3-44.9) % MCV 89.4 (83.0-100.0) fL MCH 29.4 (28.0-33.3) pg MCHC 32.9 (31.6-35.5) g/dL RDW 14.4 (11.5-14.5) % Plt Count 214 (140-400) K/mcL MPV 9.7 (9.4-12.4) fL Immature Gran % 0.3 (0-4) % Seg Neutrophils % 75.0 % Lymphocytes % 17.2 % Monocytes % 4.9 % Eosinophils % 2.3 % Basophils % 0.3 % Neutrophils # 4.9 (1.6-8.9) K/mcL Lymphocytes # 1.1 (0.6-4.6) K/mcL Monocytes # 0.3 (0.0-1.3) K/mcL Eosinophils # 0.2 (0.0-0.6) K/mcL Basophils # 0.0 (0.0-0.2) K/mcL D-Dimer (0-500) ng/mLFEU VBG pH 7.39 (7.32-7.42) pH Units VBG pCO2 65 H (41-51) mmHg VBG pO2 142 H (25-50) mmHg VBG HCO3 39 H (21-27) mEq/L Sodium (136-145) mEq/L Potassium (3.5-5.1) mEq/L Chloride (98-107) mEq/L Carbon Dioxide (23-29) mEq/L BUN (8-23) mg/dL Creatinine (0.60-1.20) mg/dL Est GFR ( Amer) (> 60) Est GFR (Non-Af Amer) (> 60) BUN/Creatinine Ratio (6-26) Glucose (70-105) mg/dL Calculated Osmolality (280-300) Lactic Acid (0.5-2.2) mmol/L Calcium (8.6-10.3) mg/dL Magnesium (1.6-2.6) mg/dL Total Bilirubin (0.3-1.0) mg/dL AST (13-39) Units/L ALT (7-52) Units/L Alkaline Phosphatase (34-104) Units/L Troponin I (< 0.04) ng/mL B-Natriuretic Peptide 16 (Less than 100) pg/mL Serum Total Protein (6.4-8.9) g/dL Albumin (3.5-5.7) g/dL Globulin (2.4-3.5) g/dL Albumin/Globulin Ratio (1.1-2.2) - Radiology Data Radiology results reviewed: Yes I reviewed the patient's radiology results. - EKG Data EKG attestation: Yes I reviewed and interpreted this EKG. EKG results narrative: EKG as interpreted by me normal sinus rhythm [address] elevations or depressions. Q waves in V1 and V2. Normal axis possible LAE. Comparison to previous EKG no significant change.
[2018-02-10 18:45] LABS: Basophils % 0.3 %; Eosinophils # 0.2 K/mcL (0.0-0.6); Eosinophils % 2.3 %; Hematocrit 32.8 % (35.3-44.9); Hemoglobin 10.8 g/dL (11.5-15.4); Immature Granulocytes % 0.3 % (0-4); Lymphocytes # 1.1 K/mcL (0.6-4.6); Lymphocytes % 17.2 %; Mean Corpuscular HGB Conc 32.9 g/dL (31.6-35.5); Mean Corpuscular Hemoglobin 29.4 pg (28.0-33.3); Mean Corpuscular Volume 89.4 fL (83.0-100.0); Mean Platelet Volume 9.7 fL (9.4-12.4); Monocytes # 0.3 K/mcL (0.0-1.3); Monocytes % 4.9 %; Neutrophils # 4.9 K/mcL (1.6-8.9); Platelet Count 214 K/mcL (140-400); Red Blood Count 3.67 M/mcL (3.82-4.97); Red Cell Distribution Width 14.4 % (11.5-14.5)
[2018-02-10 18:49] LABS: VBG HCO3 39 mEq/L (21-27); VBG PCO2 65 mmHg (41-51); VBG PH 7.39 pH Units (7.32-7.42); VBG PO2 142 mmHg (25-50)
[2018-02-10 18:57] LABS: Alanine Aminotransferase 15 Units/L (7-52); Albumin/Globulin Ratio 1.5 (1.1-2.2); Alkaline Phosphatase 62 Units/L (34-104); Aspartate Amino Transferase 17 Units/L (13-39); BUN/Creatinine Ratio 17 (6-26); Bilirubin,Total 0.3 mg/dL (0.3-1.0); Blood Urea Nitrogen 13 mg/dL (8-23); Calcium 10.4 mg/dL (8.6-10.3); Carbon Dioxide 35 mEq/L (23-29); Chloride 95 mEq/L (98-107); Globulin 2.6 g/dL (2.4-3.5); Glucose 120 mg/dL (70-105); Magnesium 1.7 mg/dL (1.6-2.6); Osmolality,Calculated 285 (280-300); Potassium 3.4 mEq/L (3.5-5.1); Sodium 137 mEq/L (136-145); Total Protein 6.6 g/dL (6.4-8.9); eGFR For African Americans > 60 (> 60); eGFR For Non-African Americans > 60 (> 60)
[2018-02-10 18:59] LABS: Troponin I < 0.03 ng/mL (< 0.04)
[2018-02-10] MEDS ORDERED: Naloxone 0.4 MG/ML INJ IVP PRN (20:35)
[2018-02-10] MEDS ORDERED: Albuterol 2.5 MG/3 ML NEBULIZER IH PRN (20:35)
[2018-02-10 21:40] LABS: Activated Partial Thrombo Time 34.1 Seconds (26.0-36.0); Prothrombin Time 10.3 Seconds (9.4-12.1)
[2018-02-10] MEDS: *HR* LORazepam 1 MG TABLET PO SCH (22:48)
[2018-02-10] MEDS: rOPINIRole 0.25 MG TABLET PO SCH (22:48)
[2018-02-11] MEDS: methylPREDNISolone 125 MG/2 ML VIAL IVP SCH ×5 (00:16→23:57)
[2018-02-11] MEDS ORDERED: Acetaminophen 325 MG TABLET PO PRN (00:46)
[2018-02-11] MEDS: *HR* Enoxaparin 40 MG/0.4 ML SYRINGE SQ SCH (05:09)
[2018-02-11 07:17] LABS: Eosinophils % 0.2 %; Hematocrit 34.2 % (35.3-44.9); Hemoglobin 11.3 g/dL (11.5-15.4); Immature Granulocytes % 0.7 % (0-4); Lymphocytes # 0.4 K/mcL (0.6-4.6); Lymphocytes % 6.6 %; Mean Corpuscular Hemoglobin 29.4 pg (28.0-33.3); Mean Corpuscular Volume 88.8 fL (83.0-100.0); Monocytes % 0.3 %; Neutrophils # 5.5 K/mcL (1.6-8.9); Platelet Count 219 K/mcL (140-400); Red Blood Count 3.85 M/mcL (3.82-4.97); Red Cell Distribution Width 14.6 % (11.5-14.5); Segmented Neutrophils % 92.2 %
[2018-02-11] MEDS: traMADol 50 MG TABLET PO PRN ×2 (09:31→19:55)
[2018-02-11] MEDS: amLODIPine 5 MG TABLET PO SCH (09:31)
[2018-02-11] MEDS: Cholecalciferol (D-3) 1,000 UNIT TABLET PO SCH (09:31)
[2018-02-11] MEDS: Ipratropium/Albuterol Neb 3 ML IH PRN ×2 (09:31→16:31)
[2018-02-11] MEDS: (Roflumilast [Daliresp] 500 MCG) PO SCH (09:32)
[2018-02-11] MEDS: *HR* LORazepam 1 MG TABLET PO SCH ×2 (09:32→19:55)
[2018-02-11] MEDS: Loratadine 10 MG TABLET PO SCH (09:32)
--- NOTE | 2018-02-11 13:52 | Internal Med History&Physical ---
Date of Encounter: 02/11/18 Time of Encounter: 13:50 Assessment and Plan (1) Acute exacerbation of chronic obstructive airways disease Current visit: No Status: Acute (2) Smoking greater than 40 pack years Current visit: No Status: Acute (3) COPD (chronic obstructive pulmonary disease) with chronic bronchitis Current visit: Yes Status: Acute Internal Medicine - H&P: HPI Chief complaint: Patient has been increasingly short of breath the last 3 days and felt like Admitted From: Emergency Dept Plans for Post Hospital Care: Home History of present illness: Ms. Davila is a 67 year old female Age is a long history of end-stage COPD. She is actually bowel hospital for quite some time and is very depressed. But she did get short of breath with wheezing and could not walk without severe exertional dyspnea. Past Med Surg Social Fam HX - Past Medical History Medical history: arthritis, asthma, cardiomyopathy, COPD, GERD, hyperlipidemia, hypertension, kidney stones, osteoporosis, other Psychiatric history: anxiety, depression, other - Past Surgical History Surgical History: appendectomy, cataract, cholecystectomy, hysterectomy, other - Social History Smoking Status: Former smoker Smokeless Tobacco Status: No Alcohol use: none Drug use: none - Family History Mother Adopted: No Family Member Ethnicity: Non- Living Status: Hx Family Cardiac Disorders: (unknown) Hx Family Respiratory Disorders: (unknown) Hx Family Cancer: (unknown) Hx Family GI Disorders: (unknown) Hx Family Endocrine Disorder: (unknown) Hx Family Neuromuscular Disorders: (unknown) Hx Family Neurologic Disorders: (unknown) Hx Family HEENT Disorders: (unknown) Hx Family Autoimmune Disorders: (unknown) Brother Adopted: No Family Member Ethnicity: Non- Living Status: Hx Family Cardiac Disorders: Yes Hx Family Respiratory Disorders: Yes Hx Family Cancer: (unknown) Hx Family GI Disorders: (unknown) Hx Family Endocrine Disorder: (unknown) Hx Family Neuromuscular Disorders: (unknown) Hx Family Neurologic Disorders: (unknown) Hx Family HEENT Disorders: (unknown) Hx Family Autoimmune Disorders: (unknown) Internal Medicine - H&P: Meds Estradiol [Estrace] 1 mg PO DAILY 06/03/15 [History] LORazepam [Ativan] 1 mg PO BID 06/03/15 [History] Ropinirole HCl [Requip] 0.25 mg PO HS 07/03/15 [History] Budesonide/Formoterol 160/4.5 [Symbicort] 2 puff IH BIDR 07/16/15 [History] Tiotropium [Spiriva] 1 cap IH DAILY 09/02/15 [History] Cetirizine HCl [Zyrtec] 10 mg PO DAILY 05/24/16 [History] Montelukast [Singulair] 10 mg PO DAILY 05/24/16 [History] Albuterol Sulfate [Proair Hfa] 1 puff IH Q4H PRN 06/17/16 [History] Roflumilast [Daliresp] 500 mcg PO DAILY 09/04/16 [History] Albuterol Neb [Proventil Neb] 2.5 mg IH TID 02/03/17 [History] Guaifenesin [Mucinex] 600 mg PO BID PRN 02/03/17 [History] Sertraline [Zoloft] 100 mg PO DAILY 02/03/17 [History] Amlodipine Besylate 10 mg PO DAILY #30 tablet 02/06/17 [Rx] Omeprazole [PriLOSEC] 40 mg PO BID #60 cap 02/06/17 [Rx] Cholecalciferol (D-3) [Vitamin D] 1,000 unit PO DAILY tab 06/03/17 [Rx] Meclizine [Antivert] 25 mg PO TID #30 tablet 01/07/18 [Rx] 3 Allergy/AdvReac Type Severity Reaction Status Date / Time bupropion [From Wellbutrin] Allergy Unknown See Verified 02/10/18 20:10 Comments codeine AdvReac Nausea Verified 02/10/18 20:10 All Systems PM: A 10-system review of systems was performed and is negative for pertinent findings except as documented above in the HPI. - Constitutional Constitutional: weight gain - Cardiovascular Cardiovascular ROS IM: dyspnea on exertion, orthopnea, paroxysmal nocturnal dyspnea - Respiratory Respiratory: cough, dyspnea, wheezing Additional comments: Nonproductive cough - Musculoskeletal Musculoskeletal ROS IM: back pain - Constitutional Vitals: Temp Pulse Resp BP Pulse Ox 97.7 F 86 16 158/74 97 02/11/18 07:50 02/11/18 07:50 02/11/18 07:50 02/11/18 07:50 02/11/18 07:50 General appearance: Present: A&O X 3 - Head Head exam: Present: atraumatic, normal inspection, normocephalic - Neck Neck exam general surgery: Present: supple, trachea midline. Absent: lymphadenopathy - Respiratory Respiratory exam: Present: CTAB. Absent: accessory muscle use, rales, rhonchi, wheezes - Cardiovascular Cardiovascular exam: Present: RRR, +S1, +S2. Absent: diastolic murmur, gallop, rubs, systolic murmur - GI/Abdominal GI/Abdominal exam: Present: normal bowel sounds, soft, no peritoneal signs. Absent: distended, tenderness - Neurological Exam Neurological exam: Present: CN II-XII intact, oriented X3, no focal deficits. Absent: pronater drift, facial droop, speech deficit Internal Med - H&P Results - Labs CBC & Chem 7: 02/11/18 06:36 02/10/18 18:25 Labs: Short CBC 02/11/18 Range/Units 06:36 WBC 5.9 (4.3-11.1) K/mcL Hgb 11.3 L (11.5-15.4) g/dL Hct 34.2 L (35.3-44.9) % Plt Count 219 (140-400) K/mcL Neutrophils # 5.5 (1.6-8.9) K/mcL - VTE Documentation of Mechanical Device: Graduated compression elastic hosiery
[2018-02-11] MEDS: rOPINIRole 0.25 MG TABLET PO SCH (19:56)
[2018-02-12] MEDS: Ipratropium/Albuterol Neb 3 ML IH PRN (02:48)
[2018-02-12] MEDS: *HR* Enoxaparin 40 MG/0.4 ML SYRINGE SQ SCH (05:50)
[2018-02-12] MEDS: methylPREDNISolone 125 MG/2 ML VIAL IVP SCH ×2 (05:50→12:12)
[2018-02-12] MEDS: *HR* LORazepam 1 MG TABLET PO SCH (08:08)
[2018-02-12] MEDS: amLODIPine 5 MG TABLET PO SCH (08:08)
[2018-02-12] MEDS: (Roflumilast [Daliresp] 500 MCG) PO SCH (08:09)
[2018-02-12] MEDS: Cholecalciferol (D-3) 1,000 UNIT TABLET PO SCH (08:09)
[2018-02-12] MEDS: Loratadine 10 MG TABLET PO SCH (08:09)
[2018-02-12 11:41] VITALS: BP 138/71
--- NOTE | 2018-02-12 11:53 | Discharge Summary ---
Date of Encounter: 02/12/18 Time of Encounter: 12:00 - Discharge Diagnosis (1) Acute exacerbation of chronic obstructive airways disease Priority: Primary Status: Acute (2) Smoking greater than 40 pack years Priority: Primary Status: Acute (3) COPD (chronic obstructive pulmonary disease) with chronic bronchitis Priority: Primary Status: Acute Hospital course: Ms. Davila is a 67 year old female Discharge discussed with: patient - Time Spent with Patient Total time spent providing and/or coordinating discharge services: Less than 30 minutes - Discharge Medications Home Medications: Estradiol [Estrace] 1 mg PO DAILY 06/03/15 [History] LORazepam [Ativan] 1 mg PO BID 06/03/15 [History] Ropinirole HCl [Requip] 0.25 mg PO HS 07/03/15 [History] Budesonide/Formoterol 160/4.5 [Symbicort] 2 puff IH BIDR 07/16/15 [History] Tiotropium [Spiriva] 1 cap IH DAILY 09/02/15 [History] Cetirizine HCl [Zyrtec] 10 mg PO DAILY 05/24/16 [History] Montelukast [Singulair] 10 mg PO DAILY 05/24/16 [History] Albuterol Sulfate [Proair Hfa] 1 puff IH Q4H PRN 06/17/16 [History] Roflumilast [Daliresp] 500 mcg PO DAILY 09/04/16 [History] Albuterol Neb [Proventil Neb] 2.5 mg IH TID 02/03/17 [History] Guaifenesin [Mucinex] 600 mg PO BID PRN 02/03/17 [History] Sertraline [Zoloft] 100 mg PO DAILY 02/03/17 [History] Amlodipine Besylate 10 mg PO DAILY #30 tablet 02/06/17 [Rx] Omeprazole [PriLOSEC] 40 mg PO BID #60 cap 02/06/17 [Rx] Cholecalciferol (D-3) [Vitamin D] 1,000 unit PO DAILY tab 06/03/17 [Rx] Meclizine [Antivert] 25 mg PO TID #30 tablet 01/07/18 [Rx] Allergies/Adverse Reactions: 3 Allergy/AdvReac Type Severity Reaction Status Date / Time bupropion [From Wellbutrin] Allergy Unknown See Verified 02/10/18 20:10 Comments codeine AdvReac Nausea Verified 02/10/18 20:10 Date of admission: 02/10/18 19:55 Primary care physician: PCP NONE Discharging clinician: Leonardo Hightower Anticipated date of discharge: 02/12/18 - Constitutional Vitals: Temp Pulse Resp BP Pulse Ox 97.7 F 87 16 138/71 97 02/12/18 11:41 02/12/18 11:41 02/12/18 11:41 02/12/18 11:41 02/12/18 11:41 General appearance: Present: A&O X 3 - Head Head exam: Present: atraumatic, normal inspection, normocephalic - Neck Neck exam general surgery: Present: supple, trachea midline. Absent: lymphadenopathy - Respiratory Respiratory exam: Present: decreased breath sounds, CTAB, prolonged expiratory phase Additional comments: Obviously she has very diminished breath sounds but they are clear - Cardiovascular Cardiovascular exam: Present: RRR - Patient Status Disposition: Home, Self-Care Overall status at discharge: patient is back to baseline - Discharge Instructions Instructions: Chronic Obstructive Pulmonary Disease (ED) Follow Up With: deisi harrison [Other] - 02/22/18 3:00 pm - Diet and Activity Activity: increase activity as tolerated Diet: advance to your usual diet - VTE Documentation of Mechanical Device: Graduated compression elastic hosiery
--- NOTE | 2018-02-13 17:12 | Electrocardiograph Report ---
[address] [place] [address] Test Date: 2018-02-10 Pat Name: Loreto Davila Department: 2000 Room: 116 Gender: F Animal Care Worker: : 1950 Requested By: Hermes Mora Order Number: [id number] Reading MD: Sissy Macias Measurements Intervals [place] Rate: 97 P: 83 NH: 140 QRS: 74 QRSD: 90 T: 78 QT: 329 QTc: 383 Interpretive Statements SINUS RHYTHM POSSIBLE LEFT ATRIAL ENLARGEMENT SEPTAL MYOCARDIAL INFARCTION, OF INDETERMINATE AGE Electronically Signed On 02-13-2018 17:10:34 EDT by Sissy Macias
== END 2018-02-12 12:25 | disposition home or self-care (01) ==
LOC: INPGRE 17:15 → EMEROOGRE 17:15 → INPGRE 20:30

== ENCOUNTER 2018-07-18 00:57 | Observation (INO) ==
--- NOTE | 2018-07-18 01:14 | Emergency Department Note ---
Disposition Clinical Impression: COPD exacerbation Disposition: Admitted As Inpatient Condition: Fair Referrals: William Corrigan, EARTH SCIENCE TEACHER [Primary Care Provider] - SOB HPI - General Stated Complaint: SOB Source: patient Limitations: no limitations Nursing Notes Reviewed: Yes Vital Signs Reviewed: Yes - History of Present Illness has been short of breath for the last several weeks. Was admitted recently and transferred to [facility] for increasing hypercapnea. she has Bipap at home but doesn 't like to wear it. she has a nonproductive cough, no hemoptysis, very little pedal edema and no significant chest pain. no fever or chills. she does not smoke. no vomiting. Is oxygen dependent, has been using her neb 3 or 4 times a day Pt Subjective Complaint: shortness of breath Onset (ago): week(s) (2) Context: recent illness Severity: moderate Consistency/Duration: constant Improves with: bronchodilators Worsens with: nothing Known history of: COPD Associated symptoms: Reports: denies other symptoms Treatment prior to arrival: oxygen - Related Data Home Medications Medication Instructions Recorded Confirmed Ropinirole HCl [Requip] 0.25 mg PO HS 07/03/15 07/18/18 Cetirizine HCl [Zyrtec] 10 mg PO DAILY 05/24/16 07/18/18 Montelukast [Singulair] 10 mg PO DAILY 05/24/16 07/18/18 Albuterol Sulfate [Proair Hfa] 1 puff IH Q4H PRN 06/17/16 07/18/18 Roflumilast [Daliresp] 500 mcg PO DAILY 09/04/16 07/18/18 Albuterol Neb [Proventil Neb] 2.5 mg IH TID 02/03/17 07/18/18 Sertraline [Zoloft] 100 mg PO DAILY 02/03/17 07/18/18 Aclidinium [place] [Tudorza 400 mcg IH BID 03/18/18 07/18/18 Pressair] Budesonide/Formoterol 160/4.5 2 puff IH BIDR 03/18/18 07/18/18 [Symbicort 160/4.5] Estradiol [Estrace] 1 mg PO DAILY 03/18/18 07/18/18 LORazepam [Ativan] 1 mg PO TID PRN 03/18/18 07/18/18 amLODIPine [Norvasc] 5 mg PO DAILY 06/05/18 07/18/18 Previous Rx's Medication Instructions Recorded Meclizine [Antivert] 25 mg PO TID #30 tablet 01/07/18 Omeprazole [PriLOSEC] 20 mg PO DAILY #30 capsule. 03/21/18 Lidocaine Patch [Lidoderm 5% patch] 1 each TP Q12HR #14 adh..patch 06/11/18 Allergies Allergy/AdvReac Type Severity Reaction Status Date / Time bupropion [From Wellbutrin] Allergy Unknown See Verified 07/18/18 01:10 Comments aspirin [ASA] Allergy Nausea Verified 07/18/18 01:10 codeine AdvReac Nausea Verified 07/18/18 01:10 All systems ED: reviewed and negative except as stated. Past Medical History - Past Medical History Medical history: Reports: arthritis, asthma, cardiomyopathy, COPD, GERD, hyperlipidemia, hypertension, kidney stones, osteoporosis, other Surgical history: Reports: appendectomy, cataract, cholecystectomy, hysterectomy , other Psychiatric history: Reports: anxiety, depression, other TREE SURGEON history: Reports: no TREE SURGEON history - Social History Smoking Status: Former smoker Smokeless Tobacco Status: No Alcohol use: Reports: none Drug use: Reports: none Physical Exam - General Limitations: no limitations General appearance: alert, other (mild respiratory distress. cannot finish long sentences without stopping to breathe) - Head Head exam: atraumatic, normocephalic - Eye Eye exam: Present: normal appearance, PERRL, EOMI. Absent: scleral icterus - ENT ENT exam: normal exam, normal oropharynx, TM's normal bilaterally - Neck Neck exam: Present: normal inspection, full ROM, trachea midline. Absent: lymphadenopathy - Chest Chest inspection: Present: normal inspection, symmetric chest wall rise, other ( barrel chest) - Respiratory Respiratory exam: Present: other (generalized decrease in air movement, expiratory prolongation but no jamee wheezes. no rales) - Cardiovascular Cardiovascular exam: Present: regular rate, normal rhythm, tachycardia (mild tachycardia), normal heart sounds - Abdominal Exam Abdominal exam: Present: soft, Non-Tender, normal bowel sounds - Extremities Exam Extremities exam: Present: normal inspection, full ROM. Absent: pedal edema, calf tenderness - Expanded Lower Extremity Exam Neurovascular/Tendon exam: Present: normal capillary refill. Absent: pulse deficit Gait: observed and normal - Back Exam Back exam: Present: normal inspection, full ROM - Neurological Exam Neurological exam: Present: alert, oriented X3 - Psychiatric Psychiatric exam: Present: normal affect, normal mood - Skin Skin exam: Present: warm, dry, normal color Course - Reevaluation(s) Reevaluation #1: 0248: feels quite a bit better Reevaluation #2: 0309: discussed with Dr. Meza who has accepted to the floor. I do not think she has a PE or needs a CT angio of the chest. she had one 4 months ago and it was negative Vital Signs Temperature 97.7 F 07/18/18 00:57 Pulse Rate 107 07/18/18 00:57 Respiratory Rate 24 07/18/18 00:57 Blood Pressure 132/83 07/18/18 00:57 O2 Sat by Pulse Oximetry 99 07/18/18 00:57 Temperature 97.7 F 07/18/18 00:57 Pulse Rate 106 07/18/18 02:44 Respiratory Rate 20 07/18/18 02:44 Blood Pressure 164/82 07/18/18 02:44 O2 Sat by Pulse Oximetry 96 07/18/18 02:44 Oxygen Delivery Oxygen Delivery Nasal Cannula Shortness of Breath/Dyspnea - Lab Data Result diagrams: 07/18/18 01:42 07/18/18 01:42 Lab Results 07/18/18 07/18/18 07/18/18 Range/Units 01:42 01:42 01:42 WBC 9.3 (4.3-11.1) K/mcL RBC 3.56 L (3.82-4.97) M/mcL Hgb 9.5 L (11.5-15.4) g/dL Hct 31.4 L (35.3-44.9) % MCV 88.2 (83.0-100.0) fL MCH 26.7 L (28.0-33.3) pg MCHC 30.3 L (31.6-35.5) g/dL RDW 14.2 (11.5-14.5) % Plt Count 272 (140-400) K/mcL MPV 8.9 L (9.4-12.4) fL Immature Gran % 0.4 (0-4) % Seg Neutrophils % 71.2 % Lymphocytes % 19.3 % Monocytes % 6.4 % Eosinophils % 2.3 % Basophils % 0.4 % Neutrophils # 6.6 (1.6-8.9) K/mcL Lymphocytes # 1.8 (0.6-4.6) K/mcL Monocytes # 0.6 (0.0-1.3) K/mcL Eosinophils # 0.2 (0.0-0.6) K/mcL Basophils # 0.0 (0.0-0.2) K/mcL PT 10.5 (9.4-12.1) Seconds INR 0.9 APTT 36.8 H (26.0-36.0) Seconds D-Dimer 912 H (0-500) ng/mLFEU Sodium 141 (136-145) mEq/L Potassium 4.5 (3.5-5.1) mEq/L Chloride 100 (98-107) mEq/L Carbon Dioxide 38 H (23-29) mEq/L BUN 15 (8-23) mg/dL Creatinine 0.79 (0.60-1.20) mg/dL Est GFR ( Amer) > 60 (> 60) Est GFR (Non-Af Amer) > 60 (> 60) BUN/Creatinine Ratio 19 (6-26) Glucose 133 H (70-105) mg/dL Calculated Osmolality 295 (280-300) Calcium 9.2 (8.6-10.3) mg/dL Total Bilirubin 0.2 L (0.3-1.0) mg/dL Direct Bilirubin 0.1 (0.0-0.2) mg/dL Indirect Bilirubin 0.1 (0.0-1.2) mg/dL AST 14 (13-39) Units/L ALT 11 (7-52) Units/L Alkaline Phosphatase 75 (34-104) Units/L Troponin I < 0.03 (< 0.04) ng/mL B-Natriuretic Peptide (Less than 100) pg/mL Serum Total Protein 6.4 (6.4-8.9) g/dL Albumin 3.6 (3.5-5.7) g/dL Globulin 2.8 (2.4-3.5) g/dL Albumin/Globulin Ratio 1.3 (1.1-2.2) 07/18/18 Range/Units 01:42 WBC (4.3-11.1) K/mcL RBC (3.82-4.97) M/mcL Hgb (11.5-15.4) g/dL Hct (35.3-44.9) % MCV (83.0-100.0) fL MCH (28.0-33.3) pg MCHC (31.6-35.5) g/dL RDW (11.5-14.5) % Plt Count (140-400) K/mcL MPV (9.4-12.4) fL Immature Gran % (0-4) % Seg Neutrophils % % Lymphocytes % % Monocytes % % Eosinophils % % Basophils % % Neutrophils # (1.6-8.9) K/mcL Lymphocytes # (0.6-4.6) K/mcL Monocytes # (0.0-1.3) K/mcL Eosinophils # (0.0-0.6) K/mcL Basophils # (0.0-0.2) K/mcL PT (9.4-12.1) Seconds INR APTT (26.0-36.0) Seconds D-Dimer (0-500) ng/mLFEU Sodium (136-145) mEq/L Potassium (3.5-5.1) mEq/L Chloride (98-107) mEq/L Carbon Dioxide (23-29) mEq/L BUN (8-23) mg/dL Creatinine (0.60-1.20) mg/dL Est GFR ( Amer) (> 60) Est GFR (Non-Af Amer) (> 60) BUN/Creatinine Ratio (6-26) Glucose (70-105) mg/dL Calculated Osmolality (280-300) Calcium (8.6-10.3) mg/dL Total Bilirubin (0.3-1.0) mg/dL Direct Bilirubin (0.0-0.2) mg/dL Indirect Bilirubin (0.0-1.2) mg/dL AST (13-39) Units/L ALT (7-52) Units/L Alkaline Phosphatase (34-104) Units/L Troponin I (< 0.04) ng/mL B-Natriuretic Peptide 8 (Less than 100) pg/mL Serum Total Protein (6.4-8.9) g/dL Albumin (3.5-5.7) g/dL Globulin (2.4-3.5) g/dL Albumin/Globulin Ratio (1.1-2.2)
[2018-07-18] MEDS ORDERED: methylPREDNISolone 125 MG/2 ML VIAL IVP ONE (01:21)
[2018-07-18] MEDS ORDERED: Ipratropium/Albuterol Neb 3 ML IH ONE (01:21)
[2018-07-18 01:45] LABS: Basophils % 0.4 %; Eosinophils # 0.2 K/mcL (0.0-0.6); Eosinophils % 2.3 %; Hematocrit 31.4 % (35.3-44.9); Hemoglobin 9.5 g/dL (11.5-15.4); Immature Granulocytes % 0.4 % (0-4); Lymphocytes # 1.8 K/mcL (0.6-4.6); Lymphocytes % 19.3 %; Mean Corpuscular HGB Conc 30.3 g/dL (31.6-35.5); Mean Corpuscular Hemoglobin 26.7 pg (28.0-33.3); Mean Corpuscular Volume 88.2 fL (83.0-100.0); Mean Platelet Volume 8.9 fL (9.4-12.4); Monocytes # 0.6 K/mcL (0.0-1.3); Monocytes % 6.4 %; Neutrophils # 6.6 K/mcL (1.6-8.9); Platelet Count 272 K/mcL (140-400); Red Blood Count 3.56 M/mcL (3.82-4.97); Red Cell Distribution Width 14.2 % (11.5-14.5); Segmented Neutrophils % 71.2 %
[2018-07-18 01:57] LABS: INR 0.9; Prothrombin Time 10.5 Seconds (9.4-12.1)
[2018-07-18 02:00] LABS: Activated Partial Thrombo Time 36.8 Seconds (26.0-36.0)
[2018-07-18 02:03] LABS: Alanine Aminotransferase 11 Units/L (7-52); Albumin 3.6 g/dL (3.5-5.7); Albumin/Globulin Ratio 1.3 (1.1-2.2); Alkaline Phosphatase 75 Units/L (34-104); Aspartate Amino Transferase 14 Units/L (13-39); BUN/Creatinine Ratio 19 (6-26); Bilirubin,Direct 0.1 mg/dL (0.0-0.2); Bilirubin,Indirect 0.1 mg/dL (0.0-1.2); Bilirubin,Total 0.2 mg/dL (0.3-1.0); Blood Urea Nitrogen 15 mg/dL (8-23); Calcium 9.2 mg/dL (8.6-10.3); Carbon Dioxide 38 mEq/L (23-29); Chloride 100 mEq/L (98-107); Globulin 2.8 g/dL (2.4-3.5); Glucose 133 mg/dL (70-105); Osmolality,Calculated 295 (280-300); Potassium 4.5 mEq/L (3.5-5.1); Sodium 141 mEq/L (136-145); Total Protein 6.4 g/dL (6.4-8.9); eGFR For Non-African Americans > 60 (> 60)
[2018-07-18 02:12] LABS: Troponin I < 0.03 ng/mL (< 0.04)
[2018-07-18 02:53] LABS: VBG HCO3 38 mEq/L (21-27); VBG PCO2 58 mmHg (41-51); VBG PH 7.43 pH Units (7.32-7.42); VBG PO2 91 mmHg (25-50)
[2018-07-18] MEDS ORDERED: Naloxone 0.4 MG/ML INJ IVP PRN (03:44)
[2018-07-18] MEDS: Ipratropium/Albuterol Neb 3 ML IH SCH ×6 (04:41→23:24)
[2018-07-18] MEDS: *HR* Enoxaparin 40 MG/0.4 ML SYRINGE SQ SCH (05:08)
[2018-07-18] MEDS ORDERED: Doxycycline 100 MG in 0.9 % Sodium Chloride Mini Bag 100 ML IVPB SCH (06:00)
[2018-07-18] MEDS: MethylPREDNISolone 40 MG/ML VIAL IVP SCH ×3 (06:11→19:32)
[2018-07-18] MEDS: amLODIPine 5 MG TABLET PO SCH (08:06)
[2018-07-18] MEDS: Loratadine 10 MG TABLET PO SCH (08:06)
[2018-07-18] MEDS: (Roflumilast [Daliresp] 500 MCG) PO SCH (08:28)
[2018-07-18] MEDS: TUDORZA PRESSAIR IH SCH ×2 (08:28→21:12)
--- NOTE | 2018-07-18 09:24 | Internal Med History&Physical ---
Date of Encounter: 07/18/18 Time of Encounter: 09:21 Assessment and Plan (1) Acute exacerbation of chronic obstructive airways disease Current visit: No Status: Acute Exacerbating of COPD no clear evidence of any infection so far but could be due to community bronchitis , switch to Or;a Doxy instead of IV , continue breathing treatment . IV solumedrol , and HHN . on 3 L oxy Pulse is 95% she uses 3 liters at home as well She states that she uses BIPAP at home. Sputum for gram stain and C/S if possible. She states that she has quit tobacco EKG seen wthin normal limit (2) Depression with anxiety Current visit: No Status: Chronic On SSRI seems to stable Some of the meds she uses for her breathing could exacerbate her anxiety . Internal Medicine - H&P: HPI Chief complaint: SOB progressive Admitted From: Emergency Dept History of present illness: Ms. Davila is a 67 year old female who was brought into to ED for increase in SOB which was progressive in nature. She has hx of COPD and was last discharged from [facility] roughly 3 weeks ago She was on tapering dose of steroid which she stopped about a weeks ago . She felt that she was getting progressively SOB having difficulty in doing her daily work and getting SOB on taking shower Increase in cough and yellow sputum no fever or chills no one else is sick at home her smokes but she states that he does that out side the home NO fever or chills no nausea vomiting or diarrhea No UTI symptoms . No Orthopnea Past Med Surg Social Fam HX - Past Medical History Medical history: arthritis, asthma, cardiomyopathy, COPD, GERD, hypertension, kidney stones, osteoporosis, other Additional medical history: cataracts Psychiatric history: anxiety, depression, other - Past Surgical History Surgical History: appendectomy, cataract, cholecystectomy, hysterectomy, other Additional surgical history: Left Breast Biopsy - Social History Smoking Status: Former smoker Smokeless Tobacco Status: No Alcohol use: none Drug use: none - Family History Mother Adopted: No Family Member Ethnicity: Non- Living Status: Hx Family Cardiac Disorders: (unknown) Hx Family Respiratory Disorders: (unknown) Hx Family Cancer: (unknown) Hx Family GI Disorders: (unknown) Hx Family Endocrine Disorder: (unknown) Hx Family Neuromuscular Disorders: (unknown) Hx Family Neurologic Disorders: (unknown) Hx Family HEENT Disorders: (unknown) Hx Family Autoimmune Disorders: (unknown) Brother Adopted: No Family Member Ethnicity: Non- Living Status: Hx Family Cardiac Disorders: Yes Hx Family Respiratory Disorders: Yes Hx Family Cancer: (unknown) Hx Family GI Disorders: (unknown) Hx Family Endocrine Disorder: (unknown) Hx Family Neuromuscular Disorders: (unknown) Hx Family Neurologic Disorders: (unknown) Hx Family HEENT Disorders: (unknown) Hx Family Autoimmune Disorders: (unknown) Internal Medicine - H&P: Meds Ropinirole HCl [Requip] 0.25 mg PO HS 07/03/15 [History] Cetirizine HCl [Zyrtec] 10 mg PO DAILY 05/24/16 [History] Montelukast [Singulair] 10 mg PO DAILY 05/24/16 [History] Albuterol Sulfate [Proair Hfa] 1 puff IH Q4H PRN 06/17/16 [History] Roflumilast [Daliresp] 500 mcg PO DAILY 09/04/16 [History] Albuterol Neb [Proventil Neb] 2.5 mg IH TID 02/03/17 [History] Sertraline [Zoloft] 100 mg PO DAILY 02/03/17 [History] Meclizine [Antivert] 25 mg PO TID #30 tablet 01/07/18 [Rx] Aclidinium [place] [Tudorza Pressair] 400 mcg IH BID 03/18/18 [History] Budesonide/Formoterol 160/4.5 [Symbicort 160/4.5] 2 puff IH BIDR 03/18/18 [ History] Estradiol [Estrace] 1 mg PO DAILY 03/18/18 [History] LORazepam [Ativan] 1 mg PO TID PRN 03/18/18 [History] Omeprazole [PriLOSEC] 20 mg PO DAILY #30 capsule.dr 03/21/18 [Rx] amLODIPine [Norvasc] 5 mg PO DAILY 06/05/18 [History] Lidocaine Patch [Lidoderm 5% patch] 1 each TP Q12HR #14 adh..patch 06/11/18 [Rx] Amino Acids [Amino Acid] 1 each PO BID 07/18/18 [History] Guaifenesin [Mucinex] 600 mg PO BID 07/18/18 [History] 3 Allergy/AdvReac Type Severity Reaction Status Date / Time bupropion [From Wellbutrin] Allergy Unknown See Verified 07/18/18 01:10 Comments aspirin [ASA] Allergy Nausea Verified 07/18/18 01:10 codeine AdvReac Nausea Verified 07/18/18 01:10 All Systems PM: A 10-system review of systems was performed and is negative for pertinent findings except as documented above in the HPI. - Constitutional Constitutional: lethargy, weakness, no anorexia, no chills, no excessive sweating, no fatigue, no fever(s), no falls, no weight gain, no weight loss - EENT Eyes: no blurry vision, no discharge, no dry eye, no floaters, no pain, no photophobia, no seeing flashes, no spots in vision - Respiratory Respiratory: cough, dyspnea, dyspnea on exertion, wheezing, excessive phlegm production, change in phlegm color, no hemoptysis, no snoring, no stridor, no pain on inspiration, no chest congestion, no pain with cough - Gastrointestinal Gastrointestinal: no abdominal pain, no belching, no bloating, no change in stool character, no coffee ground emesis, no hematemesis, no hematochezia, no loose stools, no melena, no nausea, no vomiting - Genitourinary Genitourinary: prolapse symptoms, no change in urinary stream, no difficulty conceiving, no difficulty voiding, no nocturia, no pelvic pain, no post void dribbling Menstruation: post menopausal Additional comments: no vaginal discharge - Integumentary Integumentary IM: rash, no erythema, no new lesions Additional comments: bruises noted on her arms - Neurological Neurological ROS: headache(s), no abnormal gait, no abnormal speech, no dizziness, no focal weakness, no lack of coordination, no numbness, no radicular pain, no tingling, no tremor(s) - Psychiatric Psychiatric: no homicidal ideation, no suicidal ideation - Endocrine Endocrine IM: fatigue, no deeping of the voice, no flushing, no heat intolerance - Constitutional Vitals: Temp Pulse Resp BP Pulse Ox 98.4 F 101 20 158/74 94 07/18/18 06:37 07/18/18 06:37 07/18/18 06:37 07/18/18 06:37 07/18/18 08:38 General appearance: Present: A&O X 3, pleasant, answers questions appropriately Exam: somewhat SOB on talking but states that she is getting better since her admission - Head Head exam: Present: atraumatic - Eye Eye exam: Present: EOMI, PERRL Pupils: Present: PERRL - Neck Neck exam general surgery: Present: full ROM, supple. Absent: tenderness, nuchal rigidity - Respiratory Respiratory exam: Present: decreased breath sounds, prolonged expiratory phase, respiratory distress, wheezes, tachypnea. Absent: rhonchi, stridor Additional comments: prolong expiration no accessory muscle in uses essentially clear - Expanded Respiratory Exam Location: decreased breath sounds: Left, Right, Upper, Lower (both sides ) - Cardiovascular Cardiovascular exam: Present: RRR, +S1, +S2. Absent: diastolic murmur, irregular rhythm, JVD, systolic murmur Additional comments: distant heart sounds - GI/Abdominal GI/Abdominal exam: Present: normal bowel sounds, soft. Absent: distended, guarding, rebound, rigid, tenderness - Extremities Exam Extremities exam: Absent: calf tenderness, pedal edema, tenderness - Neurological Exam Neurological exam: Present: CN II-XII intact, oriented X3, no focal deficits, strengths equal and symetr throughout. Absent: facial droop, speech deficit - Skin Skin exam: Present: petechiae (arms ) Internal Med - H&P Results - Labs CBC & Chem 7: 07/18/18 01:42 07/18/18 01:42
[2018-07-18] MEDS: Budesonide/Formoterol 160/4.5 1 PUFF INH IH SCH ×2 (11:39→23:28)
[2018-07-18] MEDS: *HR* LORazepam 1 MG TABLET PO PRN ×2 (13:27→20:42)
[2018-07-18] MEDS ORDERED: rOPINIRole 0.25 MG TABLET PO SCH (21:00)
[2018-07-18] MEDS: Doxycycline 100 MG CAPSULE PO SCH (23:29)
[2018-07-19] MEDS: MethylPREDNISolone 40 MG/ML VIAL IVP SCH ×2 (01:03→06:07)
[2018-07-19] MEDS: Ipratropium/Albuterol Neb 3 ML IH SCH ×3 (03:40→11:37)
[2018-07-19] MEDS: *HR* Enoxaparin 40 MG/0.4 ML SYRINGE SQ SCH (06:07)
[2018-07-19] MEDS: *HR* LORazepam 1 MG TABLET PO PRN (06:10)
[2018-07-19 07:41] VITALS: BP 164/80
[2018-07-19] MEDS: Loratadine 10 MG TABLET PO SCH (08:02)
[2018-07-19] MEDS: Doxycycline 100 MG CAPSULE PO SCH (08:02)
[2018-07-19] MEDS: amLODIPine 5 MG TABLET PO SCH (08:02)
[2018-07-19] MEDS: TUDORZA PRESSAIR IH SCH (08:03)
[2018-07-19] MEDS: (Roflumilast [Daliresp] 500 MCG) PO SCH (08:03)
[2018-07-19] MEDS: Budesonide/Formoterol 160/4.5 1 PUFF INH IH SCH (08:11)
--- NOTE | 2018-07-19 11:02 | Discharge Summary ---
Orders not resulted at time of discharge: Pending orders 07/18/18 09:34 Culture,Sputum with Gram Stain [RM] Routine Date of Encounter: 07/19/18 Time of Encounter: 10:54 - Discharge Diagnosis (1) Acute exacerbation of chronic obstructive airways disease Priority: Primary Status: Acute Comments: continue oral doxycycline and prednisone. scripts provided. continue home O2 and inhaled meds. follow up with PCP. Hospital course: Ms. Davila is a 67 year old female discharging to home. was treated for COPD exacerbation. O2 sats 95% on 2 liters, which is what she wears at home. does not feel any more SOB than usual. denies fever, chills, NVD, or chest pain. Discharge discussed with: patient, family, nurse - Time Spent with Patient Total time spent providing and/or coordinating discharge services: Less than 30 minutes - Discharge Medications Home Medications: Ropinirole HCl [Requip] 0.25 mg PO HS 07/03/15 [History] Cetirizine HCl [Zyrtec] 10 mg PO DAILY 05/24/16 [History] Montelukast [Singulair] 10 mg PO DAILY 05/24/16 [History] Albuterol Sulfate [Proair Hfa] 1 puff IH Q4H PRN 06/17/16 [History] Roflumilast [Daliresp] 500 mcg PO DAILY 09/04/16 [History] Albuterol Neb [Proventil Neb] 2.5 mg IH TID 02/03/17 [History] Sertraline [Zoloft] 100 mg PO DAILY 02/03/17 [History] Meclizine [Antivert] 25 mg PO TID #30 tablet 01/07/18 [Rx] Aclidinium [place] [Tudorza Pressair] 400 mcg IH BID 03/18/18 [History] Budesonide/Formoterol 160/4.5 [Symbicort 160/4.5] 2 puff IH BIDR 03/18/18 [ History] Estradiol [Estrace] 1 mg PO DAILY 03/18/18 [History] LORazepam [Ativan] 1 mg PO TID PRN 03/18/18 [History] Omeprazole [PriLOSEC] 20 mg PO DAILY #30 capsule. 03/21/18 [Rx] amLODIPine [Norvasc] 5 mg PO DAILY 06/05/18 [History] Lidocaine Patch [Lidoderm 5% patch] 1 each TP Q12HR #14 adh..patch 06/11/18 [Rx] Amino Acids [Amino Acid] 1 each PO BID 07/18/18 [History] Guaifenesin [Mucinex] 600 mg PO BID 07/18/18 [History] Acetaminophen [Tylenol] 1,000 mg PO Q4HR PRN tablet 07/19/18 [Rx] Calcium Carbonate [Tums] 1,000 mg PO QID PRN tab.chew 07/19/18 [Rx] Doxycycline 100 mg PO BID #12 capsule 07/19/18 [Rx] PredniSONE [Deltasone] 40 mg PO QAM 7 Days #14 tablet 07/19/18 [Rx] Allergies/Adverse Reactions: 3 Allergy/AdvReac Type Severity Reaction Status Date / Time bupropion [From Wellbutrin] Allergy Unknown See Verified 07/18/18 01:10 Comments aspirin [ASA] Allergy Nausea Verified 07/18/18 01:10 codeine AdvReac Nausea Verified 07/18/18 01:10 Date of admission: 07/18/18 03:24 Primary care physician: William Corrigan MACHINE SETTER Discharging clinician: Rashard Young Anticipated date of discharge: 07/19/18 - Constitutional Vitals: Temp Pulse Resp BP Pulse Ox 98.0 F 103 19 164/80 92 07/19/18 07:40 07/19/18 07:40 07/19/18 08:19 07/19/18 07:40 07/19/18 08:19 General appearance: Present: A&O X 3, pleasant, answers questions appropriately - Head Head exam: Present: atraumatic, normocephalic - Eye Eye exam: Present: PERRL, conjuntiva pink, sclera anicteric Pupils: Present: PERRL - Neck Neck exam general surgery: Present: supple, trachea midline. Absent: lymphadenopathy - Respiratory Respiratory exam: Present: CTAB. Absent: accessory muscle use, rales, rhonchi, wheezes Additional comments: diminished throughout. - Cardiovascular Cardiovascular exam: Present: RRR, +S1, +S2. Absent: diastolic murmur, gallop, rubs, systolic murmur - GI/Abdominal GI/Abdominal exam: Present: normal bowel sounds, soft, no peritoneal signs. Absent: distended, tenderness - Extremities Exam Extremities exam: Present: warm, radial pulses palpable and symmetrical. Absent : calf tenderness, cyanotic, pedal edema - Neurological Exam Neurological exam: Present: CN II-XII intact, oriented X3, no focal deficits. Absent: pronater drift, facial droop, speech deficit - Skin Skin exam: Present: dry, intact - Patient Status Disposition: Home, Self-Care Condition: Fair Functional capacity at discharge: independent ambulation Overall status at discharge: patient is progressing back to baseline - Discharge Instructions Forms: ED Satisfaction Letter - Diet and Activity Activity: increase activity as tolerated, wear oxygen at all times Diet: advance to your usual diet
--- NOTE | 2018-07-19 15:37 | Electrocardiograph Report ---
[place] [id number] Test Date: 2018-07-18 Pat Name: Loreto Davila Department: 2000 Room: 114 Gender: F Literacy Tutor: : 1950 Requested By: Nikita Arguello Order Number: [id number] Brenden MD: Min Tijerina Measurements Intervals [place] Rate: 95 P: 83 NV: 140 QRS: 77 QRSD: 82 T: 77 QT: 322 QTc: 375 Interpretive Statements SINUS RHYTHM WITH SINUS ARRHYTHMIA Electronically Signed On 07-19-2018 15:35:44 EDT by Min Tijerina
== END 2018-07-19 12:07 | disposition home or self-care (01) ==
LOC: EMEROOGRE 00:57 → INPGRE 00:57
PROVIDERS: ADMIT Internal Medicine; ATTEND Internal Medicine

== ENCOUNTER 2018-08-18 18:05 | Inpatient (IN) ==
--- NOTE | 2018-08-18 18:36 | Emergency Department Note ---
Disposition Clinical Impression: COPD (chronic obstructive pulmonary disease) with chronic bronchitis Disposition: Admitted As Inpatient Condition: Fair Time of Disposition: 20:00 SOB HPI - General Chief Complaint: ED Shortness of Breath/Dyspnea Stated Complaint: shortness of breath Time Seen by Provider: 08/18/18 18:35 Source: patient, EMS Nursing Notes Reviewed: Yes Vital Signs Reviewed: Yes - History of Present Illness For the last 3 days Ms. Davila has had increased shortness of breath and productive cough. She denies any chest pain. No fever no chills. She has had some rhinorrhea which seems to be chronic. She is on 3 L nasal cannula at home with BiPAP at night. She is not sure of the BiPAP settings. She denies any confusion. Appetite has been decreased somewhat but she denies any nausea vomiting or diarrhea. No muscle aches. Gradual onset of symptoms. No dizziness no lightheadedness. Pt Subjective Complaint: shortness of breath, cough - Related Data Home Medications Medication Instructions Recorded Confirmed Ropinirole HCl [Requip] 0.25 mg PO HS 07/03/15 08/18/18 Cetirizine HCl [Zyrtec] 10 mg PO DAILY 05/24/16 08/18/18 Montelukast [Singulair] 10 mg PO DAILY 05/24/16 08/18/18 Albuterol Sulfate [Proair Hfa] 1 puff IH Q4H PRN 06/17/16 08/18/18 Roflumilast [Daliresp] 500 mcg PO DAILY 09/04/16 08/18/18 Albuterol Neb [Proventil Neb] 2.5 mg IH TID 02/03/17 08/18/18 Sertraline [Zoloft] 100 mg PO DAILY 02/03/17 08/18/18 Budesonide/Formoterol 160/4.5 2 puff IH BIDR 03/18/18 08/18/18 [Symbicort 160/4.5] Estradiol [Estrace] 1 mg PO DAILY 03/18/18 08/18/18 LORazepam [Ativan] 1 mg PO TID PRN 03/18/18 08/18/18 amLODIPine [Norvasc] 10 mg PO DAILY 06/05/18 08/18/18 Amino Acids [Amino Acid] 1 each PO BID 07/18/18 08/18/18 Guaifenesin [Mucinex] 600 mg PO BID 07/18/18 08/18/18 Previous Rx's Medication Instructions Recorded Meclizine [Antivert] 25 mg PO TID #30 tablet 01/07/18 PredniSONE [Deltasone] 40 mg PO QAM 7 Days #14 tablet 07/19/18 Allergies Allergy/AdvReac Type Severity Reaction Status Date / Time bupropion [From Wellbutrin] Allergy Unknown See Verified 07/18/18 01:10 Comments aspirin [ASA] Allergy Nausea Verified 07/18/18 01:10 codeine AdvReac Nausea Verified 07/18/18 01:10 Constitutional: Denies: fever, chills ENT ED: Reports: congestion Cardiovascular: Reports: dyspnea on exertion. Denies: chest pain Respiratory: Reports: cough, dyspnea, sputum production Gastrointestinal: Denies: nausea, vomiting, diarrhea Musculoskeletal: Denies: myalgia Neurological: Denies: headache Endocrine: Reports: fatigue Past Medical History - Past Medical History Medical history: Reports: arthritis, asthma, cardiomyopathy, COPD, GERD, hypertension, kidney stones, osteoporosis, other Surgical history: Reports: appendectomy, cataract, cholecystectomy, h ysterectomy, other Psychiatric history: Reports: anxiety, depression, other CASING MATERIAL WEIGHER history: Reports: no CASING MATERIAL WEIGHER history - Social History Smoking Status: Former smoker Smokeless Tobacco Status: No Alcohol use: Reports: none Drug use: Reports: none Physical Exam - General General appearance: alert, in distress (Struggles to speak in full sentences) - Head Head exam: atraumatic, normocephalic - Eye Eye exam: Present: normal appearance - ENT ENT exam: normal oropharynx, other (Nasal cannula in place) - Neck Neck exam: Present: normal inspection. Absent: lymphadenopathy - Chest Chest inspection: Present: normal inspection, symmetric chest wall rise - Respiratory Respiratory exam: Present: respiratory distress, wheezes (Fair air exchange with end expiratory wheezes), accessory muscle use (Supra clavicular retractions). Absent: stridor - Cardiovascular Cardiovascular exam: Present: tachycardia, normal heart sounds. Absent: systolic murmur, diastolic murmur - Abdominal Exam Abdominal exam: Present: soft, Non-Tender - Extremities Exam Extremities exam: Present: normal inspection. Absent: pedal edema, calf te nderness (No calf cord erythema or swelling) - Neurological Exam Neurological exam: Present: alert - Psychiatric Psychiatric exam: Present: normal affect, normal mood - Skin Skin exam: Present: warm, dry Course Vital Signs Temperature 97.3 F L 08/18/18 18:07 Pulse Rate 115 08/18/18 18:07 Respiratory Rate 18 08/18/18 18:07 Blood Pressure 152/83 08/18/18 18:07 O2 Sat by Pulse Oximetry 98 08/18/18 18:07 Temperature 97.9 F 08/18/18 22:10 Pulse Rate 118 08/18/18 22:10 Respiratory Rate 19 08/18/18 22:10 Blood Pressure 169/82 08/18/18 22:10 O2 Sat by Pulse Oximetry 96 08/18/18 22:10 Oxygen Delivery Oxygen Delivery Nasal Cannula Shortness of Breath/Dyspnea - MDM Narrative Medical decision making narrative: COPD exacerbation. After 2 DuoNeb treatments (after having received 1 in the squad) she reported subjective relief. Repeat lung exam demonstrated persistence of wheezing but better air exchange. 2 L gave 90-91% saturation. Retractions have decreased as well. Although she does have home oxygen it would be prudent to keep her in the hospital where she will require frequent nebulized treatments. Prior to transfer back to the floor I gave her 3 more albuterol's. She does not know her BiPAP settings. We will use 10 and 4. I spoke with the covering hospitalist here at [facility] and presented the case. She accepted admission. Ms. Diallo he is in improved condition as she is transferred to the floor. We will continue the doxycycline that she is on, order frequent nebs and do Solu-Medrol 60 mg IV every 6 hours. - Medical Records Medical records reviewed: Yes I reviewed the patient's medical records. - Lab Data Lab results reviewed: Yes I reviewed the patient's lab results. Result diagrams: 08/18/18 18:48 08/18/18 18:48 Lab Results 08/18/18 08/18/18 08/18/18 Range/Units 18:45 18:45 18:48 WBC 5.9 (4.3-11.1) K/mcL RBC 3.46 L (3.82-4.97) M/mcL Hgb 9.4 L (11.5-15.4) g/dL Hct 30.7 L (35.3-44.9) % MCV 88.7 (83.0-100.0) fL MCH 27.2 L (28.0-33.3) pg MCHC 30.6 L (31.6-35.5) g/dL RDW 15.3 H (11.5-14.5) % Plt Count 259 (140-400) K/mcL MPV 9.5 (9.4-12.4) fL Immature Gran % 0.7 (0-4) % Seg Neutrophils % 90.8 % Lymphocytes % 6.6 % Monocytes % 1.7 % Eosinophils % 0.0 % Basophils % 0.2 % Neutrophils # 5.4 (1.6-8.9) K/mcL Lymphocytes # 0.4 L (0.6-4.6) K/mcL Monocytes # 0.1 (0.0-1.3) K/mcL Eosinophils # 0.0 (0.0-0.6) K/mcL Basophils # 0.0 (0.0-0.2) K/mcL PT 10.8 (9.4-12.1) Seconds INR 1.0 APTT 36.8 H (26.0-36.0) Seconds D-Dimer (0-500) ng/mLFEU VBG pH (7.32-7.42) pH Units VBG pCO2 (41-51) mmHg VBG pO2 (25-50) mmHg VBG HCO3 (21-27) mEq/L Sodium (136-145) mEq/L Potassium (3.5-5.1) mEq/L Chloride (98-107) mEq/L Carbon Dioxide (23-29) mEq/L BUN (8-23) mg/dL Creatinine (0.60-1.20) mg/dL Est GFR ( Amer) (> 60) Est GFR (Non-Af Amer) (> 60) BUN/Creatinine Ratio (6-26) Glucose (70-105) mg/dL Calculated Osmolality (280-300) Lactic Acid (0.5-2.2) mmol/L Calcium (8.6-10.3) mg/dL Magnesium (1.6-2.6) mg/dL Total Bilirubin (0.3-1.0) mg/dL AST (13-39) Units/L ALT (7-52) Units/L Alkaline Phosphatase (34-104) Units/L Troponin I (< 0.04) ng/mL B-Natriuretic Peptide 9 (Less than 100) pg/mL Serum Total Protein (6.4-8.9) g/dL Albumin (3.5-5.7) g/dL Globulin (2.4-3.5) g/dL Albumin/Globulin Ratio (1.1-2.2) 08/18/18 08/18/18 08/18/18 Range/Units 18:48 18:48 18:48 WBC (4.3-11.1) K/mcL RBC (3.82-4.97) M/mcL Hgb (11.5-15.4) g/dL Hct (35.3-44.9) % MCV (83.0-100.0) fL MCH (28.0-33.3) pg MCHC (31.6-35.5) g/dL RDW (11.5-14.5) % Plt Count (140-400) K/mcL MPV (9.4-12.4) fL Immature Gran % (0-4) % Seg Neutrophils % % Lymphocytes % % Monocytes % % Eosinophils % % Basophils % % Neutrophils # (1.6-8.9) K/mcL Lymphocytes # (0.6-4.6) K/mcL Monocytes # (0.0-1.3) K/mcL Eosinophils # (0.0-0.6) K/mcL Basophils # (0.0-0.2) K/mcL PT (9.4-12.1) Seconds INR APTT (26.0-36.0) Seconds D-Dimer 733 H (0-500) ng/mLFEU VBG pH (7.32-7.42) pH Units VBG pCO2 (41-51) mmHg VBG pO2 (25-50) mmHg VBG HCO3 (21-27) mEq/L Sodium 142 (136-145) mEq/L Potassium 4.1 (3.5-5.1) mEq/L Chloride 93 L (98-107) mEq/L Carbon Dioxide 44 H* (23-29) mEq/L BUN 16 (8-23) mg/dL Creatinine 0.63 (0.60-1.20) mg/dL Est GFR ( Amer) > 60 (> 60) Est GFR (Non-Af Amer) > 60 (> 60) BUN/Creatinine Ratio 25 (6-26) Glucose 177 H (70-105) mg/dL Calculated Osmolality 300 (280-300) Lactic Acid 0.8 (0.5-2.2) mmol/L Calcium 9.8 (8.6-10.3) mg/dL Magnesium 2.0 (1.6-2.6) mg/dL Total Bilirubin 0.2 L (0.3-1.0) mg/dL AST 14 (13-39) Units/L ALT 9 (7-52) Units/L Alkaline Phosphatase 74 (34-104) Units/L Troponin I < 0.03 (< 0.04) ng/mL B-Natriuretic Peptide (Less than 100) pg/mL Serum Total Protein 7.2 (6.4-8.9) g/dL Albumin 4.0 (3.5-5.7) g/dL Globulin 3.2 (2.4-3.5) g/dL Albumin/Globulin Ratio 1.3 (1.1-2.2) 08/18/18 Range/Units 19:07 WBC (4.3-11.1) K/mcL RBC (3.82-4.97) M/mcL Hgb (11.5-15.4) g/dL Hct (35.3-44.9) % MCV (83.0-100.0) fL MCH (28.0-33.3) pg MCHC (31.6-35.5) g/dL RDW (11.5-14.5) % Plt Count (140-400) K/mcL MPV (9.4-12.4) fL Immature Gran % (0-4) % Seg Neutrophils % % Lymphocytes % % Monocytes % % Eosinophils % % Basophils % % Neutrophils # (1.6-8.9) K/mcL Lymphocytes # (0.6-4.6) K/mcL Monocytes # (0.0-1.3) K/mcL Eosinophils # (0.0-0.6) K/mcL Basophils # (0.0-0.2) K/mcL PT (9.4-12.1) Seconds INR APTT (26.0-36.0) Seconds D-Dimer (0-500) ng/mLFEU VBG pH 7.48 H (7.32-7.42) pH Units VBG pCO2 62 H (41-51) mmHg VBG pO2 60 H (25-50) mmHg VBG HCO3 46 H (21-27) mEq/L Sodium (136-145) mEq/L Potassium (3.5-5.1) mEq/L Chloride (98-107) mEq/L Carbon Dioxide (23-29) mEq/L BUN (8-23) mg/dL Creatinine (0.60-1.20) mg/dL Est GFR ( Amer) (> 60) Est GFR (Non-Af Amer) (> 60) BUN/Creatinine Ratio (6-26) Glucose (70-105) mg/dL Calculated Osmolality (280-300) Lactic Acid (0.5-2.2) mmol/L Calcium (8.6-10.3) mg/dL Magnesium (1.6-2.6) mg/dL Total Bilirubin (0.3-1.0) mg/dL AST (13-39) Units/L ALT (7-52) Units/L Alkaline Phosphatase (34-104) Units/L Troponin I (< 0.04) ng/mL B-Natriuretic Peptide (Less than 100) pg/mL Serum Total Protein (6.4-8.9) g/dL Albumin (3.5-5.7) g/dL Globulin (2.4-3.5) g/dL Albumin/Globulin Ratio (1.1-2.2) - Radiology Data Radiology results reviewed: Yes I reviewed the patient's radiology results. - EKG Data EKG attestation: Yes I reviewed and interpreted this EKG. EKG results narrative: EKG as interpreted by me sinus tachycardia 114 bpm. Normal axis. No ST elevation or depression. No evidence of hypertrophy. No significant change from June 2018.
[2018-08-18] MEDS ORDERED: Ipratropium/Albuterol Neb 3 ML IH ONE ×2 (18:37→20:27)
[2018-08-18] MEDS: Ipratropium/Albuterol Neb 3 ML IH ONE ×2 (18:52→18:53)
[2018-08-18 19:02] LABS: Basophils % 0.2 %; Hematocrit 30.7 % (35.3-44.9); Hemoglobin 9.4 g/dL (11.5-15.4); Immature Granulocytes % 0.7 % (0-4); Lymphocytes # 0.4 K/mcL (0.6-4.6); Lymphocytes % 6.6 %; Mean Corpuscular HGB Conc 30.6 g/dL (31.6-35.5); Mean Corpuscular Hemoglobin 27.2 pg (28.0-33.3); Mean Corpuscular Volume 88.7 fL (83.0-100.0); Mean Platelet Volume 9.5 fL (9.4-12.4); Monocytes # 0.1 K/mcL (0.0-1.3); Monocytes % 1.7 %; Neutrophils # 5.4 K/mcL (1.6-8.9); Platelet Count 259 K/mcL (140-400); Red Blood Count 3.46 M/mcL (3.82-4.97); Red Cell Distribution Width 15.3 % (11.5-14.5); Segmented Neutrophils % 90.8 %
[2018-08-18 19:09] LABS: VBG HCO3 46 mEq/L (21-27); VBG PCO2 62 mmHg (41-51); VBG PH 7.48 pH Units (7.32-7.42); VBG PO2 60 mmHg (25-50)
[2018-08-18 19:18] LABS: Alanine Aminotransferase 9 Units/L (7-52); Albumin/Globulin Ratio 1.3 (1.1-2.2); Alkaline Phosphatase 74 Units/L (34-104); Aspartate Amino Transferase 14 Units/L (13-39); BUN/Creatinine Ratio 25 (6-26); Bilirubin,Total 0.2 mg/dL (0.3-1.0); Blood Urea Nitrogen 16 mg/dL (8-23); Calcium 9.8 mg/dL (8.6-10.3); Carbon Dioxide 44 mEq/L (23-29); Chloride 93 mEq/L (98-107); Globulin 3.2 g/dL (2.4-3.5); Glucose 177 mg/dL (70-105); Osmolality,Calculated 300 (280-300); Potassium 4.1 mEq/L (3.5-5.1); Sodium 142 mEq/L (136-145); Total Protein 7.2 g/dL (6.4-8.9); eGFR For Non-African Americans > 60 (> 60)
[2018-08-18 19:38] LABS: Troponin I < 0.03 ng/mL (< 0.04)
[2018-08-18] MEDS: Albuterol 2.5 MG/3 ML NEBULIZER IH SCH ×2 (20:11→20:41)
[2018-08-18 20:27] LABS: Prothrombin Time 10.8 Seconds (9.4-12.1)
[2018-08-18] MEDS ORDERED: Albuterol 2.5 MG/3 ML NEBULIZER IH SCH (20:27)
[2018-08-18] MEDS ORDERED: Naloxone 0.4 MG/ML INJ IVP PRN (20:27)
[2018-08-18 20:29] LABS: Activated Partial Thrombo Time 36.8 Seconds (26.0-36.0)
[2018-08-18] MEDS ORDERED: methylPREDNISolone 60 MG in 0.9 % Sodium Chloride 100 ML IVPB SCH (20:30)
[2018-08-18] MEDS ORDERED: Albuterol 2.5 MG/3 ML NEBULIZER ONE (20:34)
[2018-08-18] MEDS: methylPREDNISolone 125 MG/2 ML VIAL IVP SCH (23:50)
[2018-08-18] MEDS: Doxycycline 100 MG CAPSULE PO SCH (23:53)
[2018-08-18] MEDS: *HR* LORazepam 1 MG TABLET PO PRN (23:54)
[2018-08-18] MEDS: rOPINIRole 0.25 MG TABLET PO SCH (23:54)
[2018-08-19] MEDS: methylPREDNISolone 125 MG/2 ML VIAL IVP SCH ×4 (04:40→21:49)
[2018-08-19] MEDS: *HR* Enoxaparin 40 MG/0.4 ML SYRINGE SQ SCH (04:40)
[2018-08-19 06:02] LABS: Hematocrit 28.8 % (35.3-44.9); Hemoglobin 8.6 g/dL (11.5-15.4); Immature Granulocytes % 0.8 % (0-4); Lymphocytes # 0.4 K/mcL (0.6-4.6); Lymphocytes % 8.8 %; Mean Corpuscular HGB Conc 29.9 g/dL (31.6-35.5); Mean Corpuscular Hemoglobin 26.7 pg (28.0-33.3); Mean Corpuscular Volume 89.4 fL (83.0-100.0); Mean Platelet Volume 9.7 fL (9.4-12.4); Monocytes # 0.2 K/mcL (0.0-1.3); Monocytes % 4.5 %; Neutrophils # 4.2 K/mcL (1.6-8.9); Platelet Count 249 K/mcL (140-400); Red Blood Count 3.22 M/mcL (3.82-4.97); Red Cell Distribution Width 15.1 % (11.5-14.5); Segmented Neutrophils % 85.9 %
[2018-08-19 07:06] LABS: BUN/Creatinine Ratio 27 (6-26); Blood Urea Nitrogen 15 mg/dL (8-23); Calcium 9.4 mg/dL (8.6-10.3); Carbon Dioxide 45 mEq/L (23-29); Chloride 95 mEq/L (98-107); Glucose 129 mg/dL (70-105); Osmolality,Calculated 297 (280-300); Potassium 4.6 mEq/L (3.5-5.1); Sodium 142 mEq/L (136-145); eGFR For Non-African Americans > 60 (> 60)
[2018-08-19] MEDS: Albuterol 2.5 MG/3 ML NEBULIZER IH PRN ×2 (07:19→10:30)
[2018-08-19] MEDS ORDERED: amLODIPine 5 MG TABLET PO SCH (09:00)
[2018-08-19] MEDS: Loratadine 10 MG TABLET PO SCH (09:32)
[2018-08-19] MEDS: amLODIPine 5 MG TABLET PO SCH (09:32)
[2018-08-19] MEDS: Doxycycline 100 MG CAPSULE PO SCH ×2 (09:32→21:40)
[2018-08-19] MEDS: (Roflumilast [Daliresp] 500 MCG) PO SCH (09:32)
[2018-08-19] MEDS: *HR* LORazepam 1 MG TABLET PO PRN ×3 (09:41→21:43)
--- NOTE | 2018-08-19 12:44 | Internal Med History&Physical ---
Addendum entered and electronically signed by Sanam Handley 08/22/18 16:04: For this encounter, I have reviewed the MANAGER IMMUNOLOGY odocumentation, treatment plan, and medical decision making; and I have had face to face time with this patient. Original Note: Date of Encounter: 08/19/18 Time of Encounter: 12:40 Assessment and Plan (1) Acute exacerbation of chronic obstructive airways disease Current visit: Yes Status: Acute Patient was admitted for exacerbation of COPD through the emergency department. Patient has progressed well overnight after receiving multiple nebulizer treatments and started on cortical steroids. She continues to have a slight expiratory wheeze heard upper liriano but otherwise appears relaxed with her respiratory effort. Patient had complained of a thick yellow sputum during her upper cough. Chest x-ray was performed which shows no infectious process. Patient has remained afebrile. Continue with current plan of care and discuss with Dr. Handley. We will continue on current medications and nebulized treatments. We will continue on cortical steroids (2) CHF (congestive heart failure) Current visit: Yes Status: Acute No acute issues. Patient had chest x-ray which showed no infectious process or pulmonary edema. Patient denies any chest discomforts or palpitations. We will continue with current medications. Qualifiers: Heart failure type: unspecified Heart failure chronicity: unspecified Qualified Code(s): I50.9 - Heart failure, unspecified Internal Medicine - H&P: HPI Chief complaint: COPD Admitted From: Home Plans for Post Hospital Care: Home History of present illness: Ms. Davila is a 67 year old female , who was admitted to the emergency department after presenting with exacerbation of COPD. Patient states that she has had increased dyspnea and a productive cough over the past 3 days. Patient states she has had very thick, yellow sputum received. Patient was treated emergency department with multiple nebulizer treatments and started on cortical steroids. Patient had a chest x-ray that was done in the emergency department which showed no acute infectious process. Patient states that her respiratory status had improved greatly by the time she was admitted to the nursing floor. Patient was evaluated this morning and appears relaxed and states that she continues to feel weak but feels that her respiratory status has improved. Patient continues to complain of slight productive cough. Denies any dyspnea at rest but states she became slightly one-to-one about a bit this morning ambulating in her room. Denies any fever or chills. Denies any chest discomforts or palpitations. Patient with history of COPD with multiple admissions to facility over the past year. Patient wears oxygen and a BiPAP at night at home with some question on compliance. Past Med Surg Social Fam HX - Past Medical History Medical history: arthritis, asthma, cardiomyopathy, COPD, GERD, hypertension, kidney stones, osteoporosis, other Additional medical history: cataracts Psychiatric history: anxiety, depression, other - Past Surgical History Surgical History: appendectomy, cataract, cholecystectomy, hysterectomy, other Additional surgical history: Left Breast Biopsy - Social History Smoking Status: Former smoker Smokeless Tobacco Status: No Alcohol use: none Drug use: none - Family History Mother Adopted: No Family Member Ethnicity: Non- Living Status: Hx Family Cardiac Disorders: (unknown) Hx Family Respiratory Disorders: (unknown) Hx Family Cancer: (unknown) Hx Family GI Disorders: (unknown) Hx Family Endocrine Disorder: (unknown) Hx Family Neuromuscular Disorders: (unknown) Hx Family Neurologic Disorders: (unknown) Hx Family HEENT Disorders: (unknown) Hx Family Autoimmune Disorders: (unknown) Brother Adopted: No Family Member Ethnicity: Non- Living Status: Hx Family Cardiac Disorders: Yes Hx Family Respiratory Disorders: Yes Hx Family Cancer: (unknown) Hx Family GI Disorders: (unknown) Hx Family Endocrine Disorder: (unknown) Hx Family Neuromuscular Disorders: (unknown) Hx Family Neurologic Disorders: (unknown) Hx Family HEENT Disorders: (unknown) Hx Family Autoimmune Disorders: (unknown) Internal Medicine - H&P: Meds Ropinirole HCl [Requip] 0.25 mg PO HS 07/03/15 [History] Cetirizine HCl [Zyrtec] 10 mg PO DAILY 05/24/16 [History] Montelukast [Singulair] 10 mg PO DAILY 05/24/16 [History] Albuterol Sulfate [Proair Hfa] 1 puff IH Q4H PRN 06/17/16 [History] Roflumilast [Daliresp] 500 mcg PO DAILY 09/04/16 [History] Albuterol Neb [Proventil Neb] 2.5 mg IH TID 02/03/17 [History] Sertraline [Zoloft] 100 mg PO DAILY 02/03/17 [History] Meclizine [Antivert] 25 mg PO TID #30 tablet 01/07/18 [Rx] Budesonide/Formoterol 160/4.5 [Symbicort 160/4.5] 2 puff IH BIDR 03/18/18 [History] Estradiol [Estrace] 1 mg PO DAILY 03/18/18 [History] LORazepam [Ativan] 1 mg PO TID PRN 03/18/18 [History] amLODIPine [Norvasc] 10 mg PO DAILY 06/05/18 [History] Amino Acids [Amino Acid] 1 each PO BID 07/18/18 [History] Guaifenesin [Mucinex] 600 mg PO BID 07/18/18 [History] PredniSONE [Deltasone] 40 mg PO QAM 7 Days #14 tablet 07/19/18 [Rx] Allergy/AdvReac Type Severity Reaction Status Date / Time bupropion [From Wellbutrin] Allergy Unknown See Verified 07/18/18 01:10 Comments aspirin [ASA] Allergy Nausea Verified 07/18/18 01:10 codeine AdvReac Nausea Verified 07/18/18 01:10 All Systems PM: A 10-system review of systems was performed and is negative for pertinent findings except as documented above in the HPI. - Constitutional Constitutional: no chills, no fever(s), no night sweats - EENT Eyes: as per HPI, no change in vision, no discharge, no pain, no photophobia Ears: no ear discharge, no ear pain, no tinnitus Nose, mouth and throat: as per HPI, no dysphagia, no nasal discharge, no neck pain, no sore throat - Breasts Breasts: as per HPI - Cardiovascular Cardiovascular ROS IM: as per HPI, no chest pain, no diaphoresis, no dyspnea, no lightheadedness, no palpitations, no syncope - Respiratory Respiratory: as per HPI, no cough, no dyspnea, no wheezing, no excessive phlegm production - Gastrointestinal Gastrointestinal: as per HPI, no abdominal pain, no diarrhea, no hematemesis, no hematochezia, no melena, no nausea, no vomiting - Genitourinary Genitourinary: as per HPI, no change in urinary stream, no dysuria, no flank pain, no hematuria - Musculoskeletal Musculoskeletal ROS IM: as per HPI, no numbness, no tingling - Integumentary Integumentary IM: as per HPI, no rash, no unusual bruising - Neurological Neurological ROS: as per HPI, no confusion, no convulsions, no focal weakness, no numbness, no tingling, no tremor(s) - Hematologic/Lymphatic Hematologic/Lymphatic: no easy bruising - Constitutional Vitals: Temp Pulse Resp BP Pulse Ox 98.0 F 97 18 161/82 98 08/19/18 12:00 08/19/18 12:00 08/19/18 12:00 08/19/18 12:00 08/19/18 12:00 General appearance: Present: A&O X 3, pleasant - Head Head exam: Present: atraumatic, normocephalic - Eye Eye exam: Present: PERRL, conjuntiva pink, sclera anicteric Pupils: Present: PERRL - Neck Neck exam general surgery: Present: supple, trachea midline. Absent: lymphadenopathy - Respiratory Respiratory exam: Present: CTAB, wheezes. Absent: accessory muscle use, rales, rhonchi Additional comments: Lungs are clear throughout upper liriano with a slight expiratory wheeze heard posteriorly. Diminished breath sounds to lower basilar ilriano and no productive cough noted. Respiratory effort appears relaxed. - Cardiovascular Cardiovascular exam: Present: RRR, +S1, +S2. Absent: diastolic murmur, gallop, rubs, systolic murmur - GI/Abdominal GI/Abdominal exam: Present: normal bowel sounds, soft, no peritoneal signs. Absent: distended, tenderness - Extremities Exam Extremities exam: Present: warm, radial pulses palpable and symmetrical. Absent: calf tenderness, cyanotic, pedal edema - Neurological Exam Neurological exam: Present: CN II-XII intact, oriented X3, no focal deficits. Absent: pronater drift, facial droop, speech deficit - Skin Skin exam: Present: dry, intact Internal Med - H&P Results - Labs CBC & Chem 7: 08/19/18 05:35 08/19/18 05:35 Labs: Short CBC 08/18/18 08/19/18 Range/Units 18:48 05:35 WBC 5.9 4.9 (4.3-11.1) K/mcL Hgb 9.4 L 8.6 L (11.5-15.4) g/dL Hct 30.7 L 28.8 L (35.3-44.9) % Plt Count 259 249 (140-400) K/mcL Neutrophils # 5.4 4.2 (1.6-8.9) K/mcL BMP 08/18/18 08/19/18 18:48 05:35 Sodium 142 142 Potassium 4.1 4.6 Chloride 93 L 95 L Carbon Dioxide 44 H* 45 H* BUN 16 15 Creatinine 0.63 0.55 L Glucose 177 H 129 H Calcium 9.8 9.4 Cardiac Enzymes 08/18/18 Range/Units 18:48 Troponin I < 0.03 (< 0.04) ng/mL Liver Function 08/18/18 Range/Units 18:48 Total Bilirubin 0.2 L (0.3-1.0) mg/dL AST 14 (13-39) Units/L ALT 9 (7-52) Units/L Alkaline Phosphatase 74 (34-104) Units/L Albumin 4.0 (3.5-5.7) g/dL - ABG Interpretation ABG results: 08/18/18 19:07 VBG pH 7.48 H VBG pCO2 62 H VBG pO2 60 H VBG HCO3 46 H - Impressions ITS Impressions Chest X-Ray 08/18/18 18:37 IMPRESSION: No acute abnormality detected. D/ / Anton Orr MD / Anton Orr MD Interpreting Provider: Anton Orr MD
[2018-08-19] MEDS: Budesonide/Formoterol 160/4.5 1 PUFF INH IH SCH ×2 (15:35→21:41)
--- NOTE | 2018-08-19 21:04 | Electrocardiograph Report ---
[address] [place], [place] [address] Test Date: 2018-08-18 Pat Name: Loreto Davila Department: 2000 Room: 113 Gender: F [employer]: YNES : 1950 Requested By: Hermes Mora Order Number: [id number] Reading MD: Maia Mondragon Measurements Intervals [place] Rate: 114 P: 84 RI: 142 QRS: 86 QRSD: 75 T: 90 QT: 303 QTc: 370 Interpretive Statements SINUS TACHYCARDIA ABNORMAL RHYTHM ECG Electronically Signed On 08-19-2018 21:02:28 EDT by Maia Mondragon
[2018-08-19] MEDS ORDERED: methylPREDNISolone 125 MG/2 ML VIAL IVP SCH (21:30)
[2018-08-19] MEDS: rOPINIRole 0.25 MG TABLET PO SCH (21:40)
[2018-08-19] MEDS: Ipratropium/Albuterol Neb 3 ML IH PRN (23:18)
[2018-08-20] MEDS: methylPREDNISolone 125 MG/2 ML VIAL IVP SCH ×2 (04:35→10:25)
[2018-08-20] MEDS: *HR* Enoxaparin 40 MG/0.4 ML SYRINGE SQ SCH (04:36)
[2018-08-20 04:44] LABS: Hematocrit 29.5 % (35.3-44.9); Hemoglobin 8.9 g/dL (11.5-15.4); Mean Corpuscular HGB Conc 30.2 g/dL (31.6-35.5); Mean Corpuscular Hemoglobin 27.1 pg (28.0-33.3); Mean Corpuscular Volume 89.7 fL (83.0-100.0); Mean Platelet Volume 9.8 fL (9.4-12.4); Platelet Count 270 K/mcL (140-400); Red Blood Count 3.29 M/mcL (3.82-4.97); Red Cell Distribution Width 15.3 % (11.5-14.5)
[2018-08-20 05:10] LABS: Alanine Aminotransferase 11 Units/L (7-52); Albumin 3.7 g/dL (3.5-5.7); Albumin/Globulin Ratio 1.3 (1.1-2.2); Alkaline Phosphatase 58 Units/L (34-104); Aspartate Amino Transferase 13 Units/L (13-39); BUN/Creatinine Ratio 34 (6-26); Bilirubin,Total 0.2 mg/dL (0.3-1.0); Blood Urea Nitrogen 20 mg/dL (8-23); Calcium 9.7 mg/dL (8.6-10.3); Carbon Dioxide 45 mEq/L (23-29); Chloride 96 mEq/L (98-107); Globulin 2.9 g/dL (2.4-3.5); Glucose 133 mg/dL (70-105); Magnesium 1.8 mg/dL (1.6-2.6); Osmolality,Calculated 301 (280-300); Potassium 4.4 mEq/L (3.5-5.1); Sodium 143 mEq/L (136-145); Total Protein 6.6 g/dL (6.4-8.9); eGFR For Non-African Americans > 60 (> 60)
[2018-08-20] MEDS: Ipratropium/Albuterol Neb 3 ML IH PRN ×3 (06:30→10:16)
[2018-08-20 07:35] VITALS: BP 164/90
[2018-08-20] MEDS: Budesonide/Formoterol 160/4.5 1 PUFF INH IH SCH (10:17)
[2018-08-20] MEDS: (Roflumilast [Daliresp] 500 MCG) PO SCH (10:24)
[2018-08-20] MEDS: Doxycycline 100 MG CAPSULE PO SCH (10:24)
[2018-08-20] MEDS: amLODIPine 5 MG TABLET PO SCH (10:24)
[2018-08-20] MEDS: Loratadine 10 MG TABLET PO SCH (10:25)
--- NOTE | 2018-08-20 10:27 | Discharge Summary ---
Addendum entered and electronically signed by Sanam Handley 08/22/18 16:04: For this encounter, I have reviewed the BIT [employer]ARP[employer] OPERATOR documentation, treatment plan, and medical decision making; and I have had face to face time with this patient. Original Note: Orders not resulted at time of discharge: Pending orders 08/18/18 18:37 Culture,Sputum with Gram Stain [RM] Stat 08/18/18 18:48 Culture,Blood [BC] Stat Date of Encounter: 08/20/18 Time of Encounter: 10:25 - Discharge Diagnosis (1) Acute exacerbation of chronic obstructive airways disease Priority: Primary Status: Acute Comments: Patient presented to emergency department with exacerbation of COPD. Patient had had increasing shortness of breath for several days prior to admission and complained of a productive cough. Chest x-ray on admission showed no infectious process but patient was started on doxycycline for possible bronchitis. Patient's pulmonary status has improved over the past 2 days after being started on corticosteroids and frequent nebulized treatments. Today patient denies any shortness of breath while at rest and appears relaxed. Patient is to follow-up with PCP after discharge. Patient will be discharged with a prescription for doxycycline and will continue her cortical steroids for 4 days. (2) CHF (congestive heart failure) Priority: Secondary Status: Chronic Comments: No acute issues during her stay at this facility. Patient showed no pulmonary edema on chest x-ray. Patient continues to have dyspnea with minimal exertion, which is likely influenced by her advanced COPD. Patient to continue follow-up with PCP and cardiology after discharge. We will continue on current home medications Qualifiers: Heart failure type: unspecified Heart failure chronicity: unspecified Qualified Code(s): I50.9 - Heart failure, unspecified Hospital course: Ms. Davila is a 67 year old female who was admitted to the emergency department after experiencing exacerbation of her COPD. Patient stated she had increasing shortness of breath for several days prior to admission and was having a productive cough. Patient was given nebulizer treatments, corticosteroids and started on doxycycline and after 2 days patient's pulmonary status improved greatly. Patient currently states that she feels much improved and is asking to be discharged home. Patient is to follow up with her PCP and director of rotc after discharge. Patient will be given a prescription for cortical steroids and doxycycline. Patient is continue with home medications. Discharge discussed with: patient Time spent discussing smoking cessation with patient: 3 to 10 minutes - Time Spent with Patient Total time spent providing and/or coordinating discharge services: Less than 30 minutes - Discharge Medications Home Medications: Ropinirole HCl [Requip] 0.25 mg PO HS 07/03/15 [History] Cetirizine HCl [Zyrtec] 10 mg PO DAILY 05/24/16 [History] Montelukast [Singulair] 10 mg PO DAILY 05/24/16 [History] Albuterol Sulfate [Proair Hfa] 1 puff IH Q4H PRN 06/17/16 [History] Roflumilast [Daliresp] 500 mcg PO DAILY 09/04/16 [History] Albuterol Neb [Proventil Neb] 2.5 mg IH TID 02/03/17 [History] Sertraline [Zoloft] 100 mg PO DAILY 02/03/17 [History] Meclizine [Antivert] 25 mg PO TID #30 tablet 01/07/18 [Rx] Budesonide/Formoterol 160/4.5 [Symbicort 160/4.5] 2 puff IH BIDR 03/18/18 [History] Estradiol [Estrace] 1 mg PO DAILY 03/18/18 [History] LORazepam [Ativan] 1 mg PO TID PRN 03/18/18 [History] amLODIPine [Norvasc] 10 mg PO DAILY 06/05/18 [History] Amino Acids [Amino Acid] 1 each PO BID 07/18/18 [History] Guaifenesin [Mucinex] 600 mg PO BID 07/18/18 [History] PredniSONE [Deltasone] 40 mg PO QAM 7 Days #14 tablet 07/19/18 [Rx] Allergies/Adverse Reactions: Allergy/AdvReac Type Severity Reaction Status Date / Time bupropion [From Wellbutrin] Allergy Unknown See Verified 07/18/18 01:10 Comments aspirin [ASA] Allergy Nausea Verified 07/18/18 01:10 codeine AdvReac Nausea Verified 07/18/18 01:10 Date of admission: 08/19/18 14:46 Primary care physician: William Corrigan NP Discharging clinician: Sanam Handley - Constitutional Vitals: Temp Pulse Resp BP Pulse Ox 98.1 F 85 18 164/90 97 08/20/18 07:34 08/20/18 07:34 08/20/18 07:34 08/20/18 07:34 08/20/18 07:34 General appearance: Present: A&O X 3, pleasant - Head Head exam: Present: atraumatic, normocephalic - Eye Eye exam: Present: PERRL, conjuntiva pink, sclera anicteric Pupils: Present: PERRL - Neck Neck exam general surgery: Present: supple, trachea midline. Absent: lymphadenopathy - Respiratory Respiratory exam: Present: CTAB. Absent: accessory muscle use, rales, rhonchi, wheezes Additional comments: Lungs are clear throughout all fills with a very slight x-ray wheezes heard to upper [place]. No productive cough noted. Respiratory effort appears relaxed while at rest. - Cardiovascular Cardiovascular exam: Present: RRR, +S1, +S2. Absent: diastolic murmur, gallop, rubs, systolic murmur - GI/Abdominal GI/Abdominal exam: Present: normal bowel sounds, soft, no peritoneal signs. Absent: distended, tenderness - Extremities Exam Extremities exam: Present: warm, radial pulses palpable and symmetrical. Absent: calf tenderness, cyanotic, pedal edema - Neurological Exam Neurological exam: Present: CN II-XII intact, oriented X3, no focal deficits. Absent: pronater drift, facial droop, speech deficit - Skin Skin exam: Present: dry, intact - Patient Status Disposition: Home, Self-Care Condition: Good Functional capacity at discharge: independent ambulation Overall status at discharge: patient is progressing back to baseline - Discharge Instructions Follow Up With: William Corrigan, NP [Primary Care Provider] - - Diet and Activity Activity: increase activity as tolerated Diet: advance to your usual diet, low fat, low cholesterol, low salt diet - VTE Reasons for not Prescribing Prophylaxis: Treatment not Indicated - Low risk for VTE
[2018-08-20] MEDS: *HR* LORazepam 1 MG TABLET PO PRN (11:42)
--- NOTE | 2018-08-20 13:19 | Physician Discharge Referral ---
Home Health/Hosp Referral Info Transfer to: Home Health Provider in Charge Post Discharge: PCP - Diagnosis (1) Acute exacerbation of chronic obstructive airways disease Priority: Primary Status: Acute (2) CHF (congestive heart failure) Priority: Secondary Status: Chronic - Respiratory Orders Oxygen / L per min (2 LPM prn), Other (BIPAP at night and prn) Smoking Cessation: Smoking cessation has been advised. For more information, call the [place] Tobacco Quit Line at 7-157-BLBX-NOW. - Diet/Nutrition Diet/Nutrition Orders: Regular, Cardiac - Activity Activity Orders: Up ad nick - Services Needed Following services are medically necessary services: Nursing - Transfer Medications Prescriptions: Doxycycline 100 mg PO BID 8 Days #16 capsule Home Medications: Ropinirole HCl [Requip] 0.25 mg PO HS 07/03/15 [History] Cetirizine HCl [Zyrtec] 10 mg PO DAILY 05/24/16 [History] Montelukast [Singulair] 10 mg PO DAILY 05/24/16 [History] Albuterol Sulfate [Proair Hfa] 1 puff IH Q4H PRN 06/17/16 [History] Roflumilast [Daliresp] 500 mcg PO DAILY 09/04/16 [History] Albuterol Neb [Proventil Neb] 2.5 mg IH TID 02/03/17 [History] Sertraline [Zoloft] 100 mg PO DAILY 02/03/17 [History] Meclizine [Antivert] 25 mg PO TID #30 tablet 01/07/18 [Rx] Budesonide/Formoterol 160/4.5 [Symbicort 160/4.5] 2 puff IH BIDR 03/18/18 [History] Estradiol [Estrace] 1 mg PO DAILY 03/18/18 [History] LORazepam [Ativan] 1 mg PO TID PRN 03/18/18 [History] amLODIPine [Norvasc] 10 mg PO DAILY 06/05/18 [History] Amino Acids [Amino Acid] 1 each PO BID 07/18/18 [History] Guaifenesin [Mucinex] 600 mg PO BID 07/18/18 [History] PredniSONE [Deltasone] 40 mg PO QAM 7 Days #14 tablet 07/19/18 [Rx] Doxycycline 100 mg PO BID 8 Days #16 capsule 08/20/18 [Rx] Allergies/Adverse Reactions: Allergy/AdvReac Type Severity Reaction Status Date / Time bupropion [From Wellbutrin] Allergy Unknown See Verified 07/18/18 01:10 Comments aspirin [ASA] Allergy Nausea Verified 07/18/18 01:10 codeine AdvReac Nausea Verified 07/18/18 01:10 Certification: Further, I certify that my clinical findings support that this patient is homebound (i.e. absences from home require considerable and taxing effort and are for medical reasons or druze services or infrequently or short duration when for other reasons) because: Homebound Reason: Patient requires assistance of a person or device to safely leave home, Leaving home requires considerable and taxing effort due to conditi on Attestation: My signature below is to certify that this patient is under my care and that I, or nurse practitioner, or a physician's law office assistant working with me, has a face- to-face encounter with this patient.
== END 2018-08-20 11:54 | disposition home or self-care (01) | DRG 191 ==
LOC: EMEROOGRE 18:05 → INPGRE 18:05

== ENCOUNTER 2018-11-22 21:40 | Observation (INO) ==
[2018-11-22] MEDS ORDERED: Levofloxacin 750 MG/150 ML 750 MG/150 ML BAG IVPB ONE (22:02)
[2018-11-22] MEDS ORDERED: Ipratropium/Albuterol Neb 3 ML IH ONE ×2 (22:02→23:42)
--- NOTE | 2018-11-22 22:06 | Emergency Department Note ---
Disposition Clinical Impression: COPD (chronic obstructive pulmonary disease) with chronic bronchitis Asthma with exacerbation Qualifiers: Asthma severity: severe Asthma persistence: persistent Qualified Code(s): J45.51 - Severe persistent asthma with (acute) exacerbation Anemia Qualifiers: Anemia type: unspecified type Qualified Code(s): D64.9 - Anemia, unspecified Disposition: Admitted As Inpatient Time of Disposition: 00:32 SOB HPI - General Stated Complaint: difficulty breathing Time Seen by Provider: 11/22/18 21:50 Source: patient, EMS Mode of arrival: EMS Limitations: physical limitation Nursing Notes Reviewed: Yes Vital Signs Reviewed: Yes - History of Present Illness Patient reports severe shortness of breath worsening over the last 3 days. She has a history of end-stage lung disease and frequent hospital and emergency department visits for severe dyspnea. She states that she just stopped her antibiotics and prednisone last week from her most recent illness. She reports that she was unable to get up and move around today because of the severity of her dyspnea especially dyspnea on exertion. She states that she felt like a weight sitting on her chest which was usual for her typical exacerbations of her lung disease. She states that she has had that for 3 days constantly without radiation and it worsens when her shortness of breath worsens which is when she is up and around. She states no history of heart disease. She has had 4 nebulizer treatments today that she took at home. She also received one albuterol one DuoNeb and Solu-Medrol 125 IV by the EMS squad. She is oxygen dependent at home at 3 L nasal cannula She states her pulmonary doctor [facility] told her to do physical therapy for her lungs and she refused Pt Subjective Complaint: shortness of breath, cough (Nonproductive), chest pain (Like a weight), "asthma attack" Onset (ago): day(s) (3) Context: recent illness, occurred during exertion, anxiety Severity: severe Consistency/Duration: constant Improves with: rest Worsens with: exertion, coughing Known history of: asthma Associated symptoms: Reports: chest pain, cough, wheezing, orthopnea, polyuria, palpitations, sense of impending doom. Denies: pain with inspiration, fever, sputum production, lower extremity pain, polydipsia, parasthesias, hemoptysis, diaphoresis, nausea/vomiting, syncope, abdominal pain Treatment prior to arrival: oxygen, bronchodilator Cough present: Yes Cough Description: Voluntary, Non-Productive, Moist, Strong Cough Frequency: Intermittent Sputum production: No - Related Data Home Medications Medication Instructions Recorded Confirmed RX: Ropinirole HCl [Requip] 0.25 mg PO HS 07/03/15 11/23/18 RX: Cetirizine HCl [Zyrtec] 10 mg PO DAILY 05/24/16 11/23/18 RX: Montelukast [Singulair] 10 mg PO DAILY 05/24/16 11/23/18 RX: Albuterol Sulfate [Proair Hfa] 1 puff IH Q4H PRN 06/17/16 11/23/18 RX: Roflumilast [Daliresp] 500 mcg PO DAILY 09/04/16 11/23/18 RX: Albuterol Neb [Proventil Neb] 2.5 mg IH TID 02/03/17 11/23/18 RX: Sertraline [Zoloft] 100 mg PO DAILY 02/03/17 11/23/18 RX: Budesonide/Formoterol 160/4.5 2 puff IH BIDR 03/18/18 11/23/18 [Symbicort 160/4.5] RX: Estradiol [Estrace] 1 mg PO DAILY 03/18/18 11/23/18 RX: LORazepam [Ativan] 1 mg PO TID PRN 03/18/18 11/23/18 RX: amLODIPine [Norvasc] 10 mg PO DAILY 06/05/18 11/23/18 RX: Amino Acids [Amino Acid] 1 each PO BID 07/18/18 11/23/18 RX: Guaifenesin [Mucinex] 600 mg PO BID 07/18/18 11/23/18 Previous Rx's Medication Instructions Recorded RX: Meclizine [Antivert] 25 mg PO TID #30 tablet 01/07/18 Allergies Allergy/AdvReac Type Severity Reaction Status Date / Time aspirin [ASA] Allergy Nausea Verified 11/23/18 01:02 codeine AdvReac Nausea Verified 11/23/18 01:02 All systems ED: reviewed and negative except as stated. 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 Skin color is pink. Appears well hydrated, body habitus normal . Presents acutely dyspneic and tachypnea unable to say more than a word or 2 because of the degree of dyspnea Head: Normocephalic and atraumatic. External ear exam normal Nose: Nose normal. Mouth/Throat: Uvula is midline, oropharynx is clear and moist and mucous membranes are normal. Eyes: Conjunctivae nl, extraocular motions and lids are normal. Pupils are equal, round, and reactive to light. Neck: Normal range of motion and phonation normal. Neck supple. Cardiovascular: Normal rate, regular rhythm, normal heart sounds. Pulmonary/Chest: Presents in Respiratory distress. Respiratory Effort increased and breath sounds diminished with little air movement and slight end expiratory wheeze with no rhonchi Abdominal: Soft. Normal appearance and bowel sounds are normal. no tenderness, no masses, no guarding, no rebound Musculoskeletal: Good distal pulses. Soft compartments. Brisk cap refill. Extremities: Normal range of motion.Intact peripheral pulses. No Edema. Extremity skin color nl, no calf tenderness or palpable cords. Neurological: GCS 15. Patient is alert and oriented without evidence of obvious motor deficits Skin: Skin is warm, dry and intact. color is normal, cap refill is quick Psychiatric: Patient has normal mood and affect. Patient speech is normal. Behavior and thought content normal Course - Reevaluation(s) Reevaluation #1: PT REMAINS dyspneic and tachypnea. Her current vitals at 2308 show SaO2 90-91%. Blood pressure 148/68. Pulse 98. Capnography readings of 39-43. Heart rate is 98. Patient chart was reviewed in detail. Her baseline CO2 on VBG seems to be about 72 She also has some baseline anemia but her usual hemoglobin is 8.6 and her current hemoglobin is 7.8. Her lactic is normal. A chest x-ray is unremarkable. Troponins normal. Patient requests and will require hospitalization since she is still quite dyspneic after several treatments and Solu-Medrol. I placed a page to Dr. Handley at this time [id number] and left a message with the hospitalist Time: 23:08 Reevaluation #2: Patient remains slightly less dyspneic. I confirmed with our charge nurse that Dr. Handley is director of institutional sales for hospitalist for [facility]. call back to dr Handley at [phone] and left second message on voicemail to call back re admission Time: 23:40 Reevaluation #3: call back from dr Handley who agres to accept pt for inpt admit here. we disc antibiotics and she would like her on antibiotics but she will manage this in am would like bipap on PRN DVT prophylaxisis 40 mg Lovenox daily, we did disc the Hb lowering and she suggested stool guiac pt improved. Dr. Handley requested that I enter admission orders for this patient as a courtesy and I have done so Time: 00:30 Vital Signs Temperature 97.8 F 11/22/18 22:12 Pulse Rate 91 11/22/18 22:12 Respiratory Rate 20 11/22/18 22:12 Blood Pressure 144/65 11/22/18 22:12 O2 Sat by Pulse Oximetry 97 11/22/18 22:12 Temperature 97.8 F 11/22/18 22:12 Pulse Rate 103 11/23/18 00:42 Respiratory Rate 20 11/22/18 22:12 Blood Pressure 158/75 11/23/18 00:42 O2 Sat by Pulse Oximetry 94 11/23/18 00:42 Oxygen Delivery Oxygen Delivery Bipap Shortness of Breath/Dyspnea - Differential Diagnosis Likely: acute exacerbation of chronic obstructive airways disease - Medical Records Medical records reviewed: Yes I reviewed the patient's medical records. - Lab Data Lab results reviewed: Yes I reviewed the patient's lab results. Result diagrams: 11/22/18 22:30 11/22/18 22:30 Lab Results 11/22/18 11/22/18 11/22/18 Range/Units 22:30 22:30 22:30 WBC 7.1 (4.3-11.1) K/mcL RBC 3.13 L (3.82-4.97) M/mcL Hgb 7.8 L (11.5-15.4) g/dL Hct 26.9 L (35.3-44.9) % MCV 85.9 (83.0-100.0) fL MCH 24.9 L (28.0-33.3) pg MCHC 29.0 L (31.6-35.5) g/dL RDW 16.5 H (11.5-14.5) % Plt Count 226 (140-400) K/mcL MPV 8.8 L (9.4-12.4) fL Immature Gran % 0.3 (0-4) % Seg Neutrophils % 68.3 % Lymphocytes % 18.3 % Monocytes % 8.6 % Eosinophils % 4.2 % Basophils % 0.3 % Neutrophils # 4.9 (1.6-8.9) K/mcL Lymphocytes # 1.3 (0.6-4.6) K/mcL Monocytes # 0.6 (0.0-1.3) K/mcL Eosinophils # 0.3 (0.0-0.6) K/mcL Basophils # 0.0 (0.0-0.2) K/mcL PT (9.4-12.1) Seconds INR VBG pH (7.32-7.42) pH Units VBG pCO2 (41-51) mmHg VBG pO2 (25-50) mmHg VBG HCO3 (21-27) mEq/L Sodium 140 (136-145) mEq/L Potassium 4.3 (3.5-5.1) mEq/L Chloride 96 L (98-107) mEq/L Carbon Dioxide 42 H* (23-29) mEq/L BUN 17 (8-23) mg/dL Creatinine 0.63 (0.60-1.20) mg/dL Est GFR ( Amer) > 60 (> 60) Est GFR (Non-Af Amer) > 60 (> 60) BUN/Creatinine Ratio 27 H (6-26) Glucose 141 H (70-105) mg/dL Calculated Osmolality 294 (280-300) Lactic Acid 0.3 L (0.5-2.2) mmol/L Calcium 8.9 (8.6-10.3) mg/dL Total Bilirubin 0.2 L (0.3-1.0) mg/dL Direct Bilirubin 0.0 (0.0-0.2) mg/dL Indirect Bilirubin 0.2 (0.0-1.2) mg/dL AST 14 (13-39) Units/L ALT 10 (7-52) Units/L Alkaline Phosphatase 67 (34-104) Units/L Troponin I < 0.03 (< 0.04) ng/mL B-Natriuretic Peptide (Less than 100) pg/mL Serum Total Protein 6.6 (6.4-8.9) g/dL Albumin 3.6 (3.5-5.7) g/dL Globulin 3.0 (2.4-3.5) g/dL Albumin/Globulin Ratio 1.2 (1.1-2.2) 11/22/18 11/22/18 11/22/18 Range/Units 22:30 22:30 22:30 WBC (4.3-11.1) K/mcL RBC (3.82-4.97) M/mcL Hgb (11.5-15.4) g/dL Hct (35.3-44.9) % MCV (83.0-100.0) fL MCH (28.0-33.3) pg MCHC (31.6-35.5) g/dL RDW (11.5-14.5) % Plt Count (140-400) K/mcL MPV (9.4-12.4) fL Immature Gran % (0-4) % Seg Neutrophils % % Lymphocytes % % Monocytes % % Eosinophils % % Basophils % % Neutrophils # (1.6-8.9) K/mcL Lymphocytes # (0.6-4.6) K/mcL Monocytes # (0.0-1.3) K/mcL Eosinophils # (0.0-0.6) K/mcL Basophils # (0.0-0.2) K/mcL PT 10.7 (9.4-12.1) Seconds INR 1.0 VBG pH (7.32-7.42) pH Units VBG pCO2 (41-51) mmHg VBG pO2 (25-50) mmHg VBG HCO3 (21-27) mEq/L Sodium 142 (136-145) mEq/L Potassium 4.4 (3.5-5.1) mEq/L Chloride 97 L (98-107) mEq/L Carbon Dioxide 39 H (23-29) mEq/L BUN 17 (8-23) mg/dL Creatinine 0.63 (0.60-1.20) mg/dL Est GFR ( Amer) > 60 (> 60) Est GFR (Non-Af Amer) > 60 (> 60) BUN/Creatinine Ratio 27 H (6-26) Glucose 139 H (70-105) mg/dL Calculated Osmolality 298 (280-300) Lactic Acid (0.5-2.2) mmol/L Calcium 9.0 (8.6-10.3) mg/dL Total Bilirubin 0.2 L (0.3-1.0) mg/dL Direct Bilirubin (0.0-0.2) mg/dL Indirect Bilirubin (0.0-1.2) mg/dL AST 14 (13-39) Units/L ALT 10 (7-52) Units/L Alkaline Phosphatase 66 (34-104) Units/L Troponin I (< 0.04) ng/mL B-Natriuretic Peptide 8 (Less than 100) pg/mL Serum Total Protein 6.5 (6.4-8.9) g/dL Albumin 3.5 (3.5-5.7) g/dL Globulin 3.0 (2.4-3.5) g/dL Albumin/Globulin Ratio 1.2 (1.1-2.2) 11/22/18 Range/Units 22:41 WBC (4.3-11.1) K/mcL RBC (3.82-4.97) M/mcL Hgb (11.5-15.4) g/dL Hct (35.3-44.9) % MCV (83.0-100.0) fL MCH (28.0-33.3) pg MCHC (31.6-35.5) g/dL RDW (11.5-14.5) % Plt Count (140-400) K/mcL MPV (9.4-12.4) fL Immature Gran % (0-4) % Seg Neutrophils % % Lymphocytes % % Monocytes % % Eosinophils % % Basophils % % Neutrophils # (1.6-8.9) K/mcL Lymphocytes # (0.6-4.6) K/mcL Monocytes # (0.0-1.3) K/mcL Eosinophils # (0.0-0.6) K/mcL Basophils # (0.0-0.2) K/mcL PT (9.4-12.1) Seconds INR VBG pH 7.41 (7.32-7.42) pH Units VBG pCO2 63 H (41-51) mmHg VBG pO2 82 H (25-50) mmHg VBG HCO3 40 H (21-27) mEq/L Sodium (136-145) mEq/L Potassium (3.5-5.1) mEq/L Chloride (98-107) mEq/L Carbon Dioxide (23-29) mEq/L BUN (8-23) mg/dL Creatinine (0.60-1.20) mg/dL Est GFR ( Amer) (> 60) Est GFR (Non-Af Amer) (> 60) BUN/Creatinine Ratio (6-26) Glucose (70-105) mg/dL Calculated Osmolality (280-300) Lactic Acid (0.5-2.2) mmol/L Calcium (8.6-10.3) mg/dL Total Bilirubin (0.3-1.0) mg/dL Direct Bilirubin (0.0-0.2) mg/dL Indirect Bilirubin (0.0-1.2) mg/dL AST (13-39) Units/L ALT (7-52) Units/L Alkaline Phosphatase (34-104) Units/L Troponin I (< 0.04) ng/mL B-Natriuretic Peptide (Less than 100) pg/mL Serum Total Protein (6.4-8.9) g/dL Albumin (3.5-5.7) g/dL Globulin (2.4-3.5) g/dL Albumin/Globulin Ratio (1.1-2.2) - Radiology Data Radiology results reviewed: Yes I reviewed the patient's radiology results. Chest x-ray impression from radiology "no acute findings. Hyperextended lungs are consistent with history of COPD" - EKG Data EKG attestation: Yes I reviewed and interpreted this EKG. EKG results narrative: ECG shows sinus tachycardia with rate of 102. No evidence of acute ST-T wave changes. Normal axis EKG shows normal: Reports: sinus rhythm Critical Care Time Attestation: Critical care provided for this patient of which 45 minutes were spent on critical care including at patient bedside, record review, evaluation of results, conversation with consultants and decision making and 0 minutes for procedures There was imminent failure of an organ system which required critical intervention to prevent clinically significant progression of life-threatening deterioration of the patient's condition to the point of disability or
[2018-11-22 22:35] LABS: Basophils % 0.3 %; Eosinophils # 0.3 K/mcL (0.0-0.6); Eosinophils % 4.2 %; Hematocrit 26.9 % (35.3-44.9); Hemoglobin 7.8 g/dL (11.5-15.4); Immature Granulocytes % 0.3 % (0-4); Lymphocytes # 1.3 K/mcL (0.6-4.6); Lymphocytes % 18.3 %; Mean Corpuscular Hemoglobin 24.9 pg (28.0-33.3); Mean Corpuscular Volume 85.9 fL (83.0-100.0); Mean Platelet Volume 8.8 fL (9.4-12.4); Monocytes # 0.6 K/mcL (0.0-1.3); Monocytes % 8.6 %; Neutrophils # 4.9 K/mcL (1.6-8.9); Platelet Count 226 K/mcL (140-400); Red Blood Count 3.13 M/mcL (3.82-4.97); Red Cell Distribution Width 16.5 % (11.5-14.5); Segmented Neutrophils % 68.3 %
[2018-11-22 22:46] LABS: VBG HCO3 40 mEq/L (21-27); VBG PCO2 63 mmHg (41-51); VBG PH 7.41 pH Units (7.32-7.42); VBG PO2 82 mmHg (25-50)
[2018-11-22 22:50] LABS: Troponin I < 0.03 ng/mL (< 0.04)
[2018-11-22 23:08] LABS: Alanine Aminotransferase 10 Units/L (7-52); Albumin 3.6 g/dL (3.5-5.7); Albumin/Globulin Ratio 1.2 (1.1-2.2); Alkaline Phosphatase 67 Units/L (34-104); Aspartate Amino Transferase 14 Units/L (13-39); BUN/Creatinine Ratio 27 (6-26); Bilirubin,Indirect 0.2 mg/dL (0.0-1.2); Bilirubin,Total 0.2 mg/dL (0.3-1.0); Blood Urea Nitrogen 17 mg/dL (8-23); Calcium 8.9 mg/dL (8.6-10.3); Chloride 96 mEq/L (98-107); Glucose 141 mg/dL (70-105); Osmolality,Calculated 294 (280-300); Potassium 4.3 mEq/L (3.5-5.1); Sodium 140 mEq/L (136-145); Total Protein 6.6 g/dL (6.4-8.9); eGFR For Non-African Americans > 60 (> 60)
[2018-11-22 23:44] LABS: Prothrombin Time 10.7 Seconds (9.4-12.1)
[2018-11-22 23:55] LABS: Alanine Aminotransferase 10 Units/L (7-52); Albumin 3.5 g/dL (3.5-5.7); Albumin/Globulin Ratio 1.2 (1.1-2.2); Alkaline Phosphatase 66 Units/L (34-104); Aspartate Amino Transferase 14 Units/L (13-39); BUN/Creatinine Ratio 27 (6-26); Bilirubin,Total 0.2 mg/dL (0.3-1.0); Blood Urea Nitrogen 17 mg/dL (8-23); Carbon Dioxide 39 mEq/L (23-29); Chloride 97 mEq/L (98-107); Glucose 139 mg/dL (70-105); Osmolality,Calculated 298 (280-300); Potassium 4.4 mEq/L (3.5-5.1); Sodium 142 mEq/L (136-145); Total Protein 6.5 g/dL (6.4-8.9); eGFR For Non-African Americans > 60 (> 60)
[2018-11-23] MEDS ORDERED: Naloxone 0.4 MG/ML INJ IVP PRN ×2 (01:35)
[2018-11-23] MEDS: *HR* Enoxaparin 40 MG/0.4 ML SYRINGE SQ SCH (04:52)
[2018-11-23 05:17] LABS: Bilirubin,Urine Negative (Negative); Blood,Urine Moderate (Negative); Clarity,Urine Slightly Cloudy (Clear); Glucose,Urine (UA) Normal (Normal); Ketones,Urine Negative (Negative); Leukocyte Esterase,Urine Negative (Negative); Nitrite,Urine Negative (Negative); Protein,Urine 30 mg/dL (Neg-Trace); Specific Gravity,Urine <= 1.005 (1.010-1.025); Urobilinogen,Urine Normal (Normal)
[2018-11-23 05:20] LABS: Color,Urine Yellow (Yellow)
[2018-11-23 05:21] LABS: Amorphous Sediment,Urine Few (Few); Squamous Epithelial Cell,Urine Few per lpf (None-Few)
[2018-11-23 05:53] LABS: Basophils % 0.1 %; Eosinophils % 0.1 %; Hematocrit 28.8 % (35.3-44.9); Hemoglobin 8.3 g/dL (11.5-15.4); Immature Granulocytes % 0.4 % (0-4); Lymphocytes # 0.3 K/mcL (0.6-4.6); Lymphocytes % 3.9 %; Mean Corpuscular HGB Conc 28.8 g/dL (31.6-35.5); Mean Corpuscular Hemoglobin 24.6 pg (28.0-33.3); Mean Corpuscular Volume 85.2 fL (83.0-100.0); Mean Platelet Volume 9.7 fL (9.4-12.4); Monocytes % 0.4 %; Neutrophils # 7.1 K/mcL (1.6-8.9); Platelet Count 241 K/mcL (140-400); Red Blood Count 3.38 M/mcL (3.82-4.97); Red Cell Distribution Width 16.4 % (11.5-14.5); Segmented Neutrophils % 95.1 %
[2018-11-23 05:56] LABS: Prothrombin Time 11.6 Seconds (9.4-12.1)
[2018-11-23 05:58] LABS: Activated Partial Thrombo Time 40.5 Seconds (26.0-36.0)
[2018-11-23] MEDS: *HR* LORazepam 1 MG TABLET PO PRN ×3 (06:01→21:48)
[2018-11-23 06:09] LABS: Alanine Aminotransferase 13 Units/L (7-52); Albumin 3.8 g/dL (3.5-5.7); Albumin/Globulin Ratio 1.2 (1.1-2.2); Alkaline Phosphatase 67 Units/L (34-104); Aspartate Amino Transferase 13 Units/L (13-39); BUN/Creatinine Ratio 24 (6-26); Bilirubin,Total 0.2 mg/dL (0.3-1.0); Blood Urea Nitrogen 16 mg/dL (8-23); Calcium 9.1 mg/dL (8.6-10.3); Carbon Dioxide 39 mEq/L (23-29); Chloride 96 mEq/L (98-107); Globulin 3.2 g/dL (2.4-3.5); Glucose 150 mg/dL (70-105); Osmolality,Calculated 294 (280-300); Potassium 4.8 mEq/L (3.5-5.1); Sodium 140 mEq/L (136-145); eGFR For Non-African Americans > 60 (> 60)
[2018-11-23] MEDS: Ipratropium/Albuterol Neb 3 ML IH PRN ×3 (09:26→18:27)
[2018-11-23] MEDS: Budesonide/Formoterol 160/4.5 1 PUFF INH IH SCH ×2 (09:27→19:25)
[2018-11-23] MEDS: MethylPREDNISolone 40 MG/ML VIAL IVP SCH ×4 (09:38→20:21)
[2018-11-23] MEDS: amLODIPine 5 MG TABLET PO SCH (09:38)
[2018-11-23] MEDS: (Roflumilast [Daliresp] 500 MCG) PO SCH (09:39)
[2018-11-23 10:23] LABS: Carbon Dioxide 42 mEq/L (23-29)
[2018-11-23] MEDS ORDERED: Mag Hydrox/Al Hydrox/Simeth 30 ML UDC PO PRN (14:15)
--- NOTE | 2018-11-23 15:17 | Internal Med History&Physical ---
Addendum entered and electronically signed by Rashard Young MD 11/24/18 14:35: I have personally performed a face to face evaluation on this patient. I have r eviewed and agree with the care plan. History and Exam by me shows: The patient was evaluated by me yesterday but the note was not complete. This documentation is being completed today for that reason. Patient has a several day history of worsening dyspnea. This is typical of her COPD exacerbations. She may have had some mild flushes and felt like she had sweats but no documented fever. She has not had any productivity of phlegm. Cough was mild for her but affected her breathing. On extensive history, she had evaluation at [facility] transplant about 4 weeks ago. They told her she would be a good candidate for lung transplant based on her breathing but that she was too weak to undergo this. They wanted her to strengthen and will see her back for another evaluation, sometime about 6 months after the first evaluation. She follows with a customer service engineer at [facility] in [place]. She has a follow-up appointment already scheduled. Interestingly, she has been wearing her BiPAP, nightly. (Before, she was noncompliant with this.) She is at her baseline, prior to 3 or 4 days ago. She states that she has gained weight and she is not sure why. She is been on recent steroids, with a steroid taper stopping about a week ago. Patient has no complaint of chest discomfort, dyspnea, orthopnea, breathing problems, palpitations, nausea or vomiting, constipation or diarrhea, other changes in bowel habits, heartburn, difficulty with urination, kidney problems or kidney stones, fevers chills or sweats, rash or itching, seizures, headache or lightheadedness, heat or cold intolerance, blood problems or anemia, or other new complaints, except as mentioned above. Review of systems is otherwise negative. Past medical history was reviewed with her, as below. Patient has no complaint of chest discomfort, dyspnea, orthopnea, breathing problems, palpitations, nausea or vomiting, constipation or diarrhea, other changes in bowel habits, heartburn, difficulty with urination, kidney problems or kidney stones, fevers chills or sweats, rash or itching, seizures, headache or lightheadedness, heat or cold intolerance, blood problems or anemia, or other new complaints, except as mentioned above. Review of systems is otherwise negative. Examination: (Except as mentioned above): General: In no apparent distress, alert and oriented 3. Head: Atraumatic and normocephalic. Eyes: Extraocular muscles are intact, pupils equal round and reactive to light and accommodation. Sclerae anicteric. Ears: External ears are normal to inspection and hearing is grossly normal. Nose: Patent without lesion noted. Mouth: No intraoral lesions seen. She wears dentures. Neck: Supple with trachea midline. There is no thyromegaly or adenopathy and carotids are 2+ without bruit heard. Respiratory: No use of accessory muscles. Airflow is diminished with sonorous rhonchi, diffusely. She has occasional end expiratory wheezing. No signs of consolidation. Cardiovascular: Regular rate and rhythm without murmur appreciated. Abdomen: Bowel sounds are normal. No hepatosplenomegaly masses or tenderness. Obese and therefore difficult to palpate deeply. She has certainly gained weight since last spring. Extremities: No cyanosis clubbing or edema. Neurological: A and O 3. Cranial nerves II through XII are intact. No focal deficits and no abnormal movements or postures. Skin: Warm and non-diaphoretic with no lesions noted. Breasts, pelvic and rectal: Not examined. She will receive IV steroids and antibiotics, follow with oxygen support as needed. She will receive BiPAP therapy as per her baseline and as needed when awake. She is currently nonhypertensive and we will follow. Original Note: Date of Encounter: 11/23/18 Time of Encounter: 15:17 Assessment and Plan (1) COPD exacerbation Current visit: Yes Status: Acute Continue IV Solu-Medrol and Levaquin. Continue oxygen and BiPAP. Continue inhaled meds. Will monitor for improvement. (2) Hypertension Current visit: Yes Status: Acute Controlled with Norvasc. Monitor blood pressure. Qualifiers: Hypertension type: essential hypertension Qualified Code(s): I10 - Essential (primary) hypertension Internal Medicine - H&P: HPI Admitted From: Emergency Dept Plans for Post Hospital Care: Home History of present illness: Ms. Davila is a 68 year old female admitted for COPD exacerbation after arriving in the emergency room last night. Patient has significant COPD history with multiple admissions to hospitals. Does have a customer service engineer in [place]. Wears oxygen at 3 L per nasal cannula at home. Past medical history is hypertension. Patient reports severe shortness of breath worsening over the last 3 days. She states that she just stopped her antibiotics and prednisone last week from her most recent illness. Past Med Surg Social Fam HX - Past Medical History Medical history: arthritis, asthma, cardiomyopathy, COPD, GERD, hypertension, kidney stones, osteoporosis, other Additional medical history: cataracts Psychiatric history: anxiety, depression, other - Past Surgical History Surgical History: appendectomy, cataract, cholecystectomy, hysterectomy, other Additional surgical history: Left Breast Biopsy - Social History Smoking Status: Former smoker Smokeless Tobacco Status: No Alcohol use: none Drug use: none - Family History Mother Adopted: No Family Member Ethnicity: Non- Living Status: Hx Family Cardiac Disorders: (unknown) Hx Family Respiratory Disorders: (unknown) Hx Family Cancer: (unknown) Hx Family GI Disorders: (unknown) Hx Family Endocrine Disorder: (unknown) Hx Family Neuromuscular Disorders: (unknown) Hx Family Neurologic Disorders: (unknown) Hx Family HEENT Disorders: (unknown) Hx Family Autoimmune Disorders: (unknown) Brother Adopted: No Family Member Ethnicity: Non- Living Status: Hx Family Cardiac Disorders: Yes Hx Family Respiratory Disorders: Yes Hx Family Cancer: (unknown) Hx Family GI Disorders: (unknown) Hx Family Endocrine Disorder: (unknown) Hx Family Neuromuscular Disorders: (unknown) Hx Family Neurologic Disorders: (unknown) Hx Family HEENT Disorders: (unknown) Hx Family Autoimmune Disorders: (unknown) Internal Medicine - H&P: Meds Ropinirole HCl [Requip] 0.25 mg PO HS 07/03/15 [History] Cetirizine HCl [Zyrtec] 10 mg PO DAILY 05/24/16 [History] Montelukast [Singulair] 10 mg PO DAILY 05/24/16 [History] Albuterol Sulfate [Proair Hfa] 1 puff IH Q4H PRN 06/17/16 [History] Roflumilast [Daliresp] 500 mcg PO DAILY 09/04/16 [History] Albuterol Neb [Proventil Neb] 2.5 mg IH TID 02/03/17 [History] Sertraline [Zoloft] 100 mg PO DAILY 02/03/17 [History] Meclizine [Antivert] 25 mg PO TID #30 tablet 01/07/18 [Rx] Budesonide/Formoterol 160/4.5 [Symbicort 160/4.5] 2 puff IH BIDR 03/18/18 [History] Estradiol [Estrace] 1 mg PO DAILY 03/18/18 [History] LORazepam [Ativan] 1 mg PO TID PRN 03/18/18 [History] amLODIPine [Norvasc] 10 mg PO DAILY 06/05/18 [History] Amino Acids [Amino Acid] 1 each PO BID 07/18/18 [History] Guaifenesin [Mucinex] 600 mg PO BID 07/18/18 [History] Allergy/AdvReac Type Severity Reaction Status Date / Time aspirin [ASA] Allergy Nausea Verified 11/23/18 01:02 codeine AdvReac Nausea Verified 11/23/18 01:02 All Systems PM: A 10-system review of systems was performed and is negative for pertinent findings except as documented above in the HPI. - Constitutional Vitals: Temp Pulse Resp BP Pulse Ox 98.6 F 101 18 166/79 95 11/23/18 11:31 11/23/18 11:31 11/23/18 14:07 11/23/18 11:31 11/23/18 14:07 General appearance: Present: cooperative, A&O X 3, pleasant, no acute distress, answers questions appropriately - Head Head exam: Present: atraumatic, normocephalic - Eye Eye exam: Present: PERRL, conjuntiva pink, sclera anicteric Pupils: Present: PERRL - Neck Neck exam general surgery: Present: supple, trachea midline. Absent: lymphadenopathy - Respiratory Respiratory exam: Absent: accessory muscle use, rales, rhonchi, wheezes Additional comments: diminished throughout. - Cardiovascular Cardiovascular exam: Present: RRR, +S1, +S2. Absent: diastolic murmur, gallop, rubs, systolic murmur - GI/Abdominal GI/Abdominal exam: Present: normal bowel sounds, soft, no peritoneal signs. Absent: distended, tenderness - Extremities Exam Extremities exam: Present: warm, radial pulses palpable and symmetrical. Absent: calf tenderness, cyanotic, pedal edema - Neurological Exam Neurological exam: Present: CN II-XII intact, oriented X3, no focal deficits. Absent: pronater drift, facial droop, speech deficit - Skin Skin exam: Present: dry, intact Internal Med - H&P Results - Labs CBC & Chem 7: 11/23/18 05:40 11/23/18 05:40 Labs: Short CBC 11/22/18 11/23/18 Range/Units 22:30 05:40 WBC 7.1 7.4 (4.3-11.1) K/mcL Hgb 7.8 L 8.3 L (11.5-15.4) g/dL Hct 26.9 L 28.8 L (35.3-44.9) % Plt Count 226 241 (140-400) K/mcL Neutrophils # 4.9 7.1 (1.6-8.9) K/mcL BMP 11/22/18 11/22/18 11/23/18 22:30 22:30 05:40 Sodium 140 142 140 Potassium 4.3 4.4 4.8 Chloride 96 L 97 L 96 L Carbon Dioxide 42 H* 39 H 39 H BUN 17 17 16 Creatinine 0.63 0.63 0.68 Glucose 141 H 139 H 150 H Calcium 8.9 9.0 9.1 Cardiac Enzymes 11/22/18 Range/Units 22:30 Troponin I < 0.03 (< 0.04) ng/mL Liver Function 11/22/18 11/22/18 11/23/18 Range/Units 22:30 22:30 05:40 Total Bilirubin 0.2 L 0.2 L 0.2 L (0.3-1.0) mg/dL Direct Bilirubin 0.0 (0.0-0.2) mg/dL AST 14 14 13 (13-39) Units/L ALT 10 10 13 (7-52) Units/L Alkaline Phosphatase 67 66 67 (34-104) Units/L Albumin 3.6 3.5 3.8 (3.5-5.7) g/dL Urine 11/23/18 Range/Units 02:51 Urine Color Yellow (Yellow) Urine Clarity Slightly Cloudy A (Clear) Urine pH 6.0 (5.0-8.0) pH Units Ur Specific Estill <= 1.005 L (1.010-1.025) Urine Protein 30 H (Neg-Trace) mg/dL Urine Glucose (UA) Normal (Normal) mg/dL - ABG Interpretation ABG results: 11/22/18 22:41 VBG pH 7.41 VBG pCO2 63 H VBG pO2 82 H VBG HCO3 40 H - Impressions ITS Impressions Chest X-Ray 11/22/18 22:02 IMPRESSION: No acute findings. Hyperexpanded lungs are consistent with history of COPD. D/ / Jesus Villarreal / Jesus Villarreal Interpreting Provider: Jesus Villarreal
[2018-11-23] MEDS: Levofloxacin 750 MG/150 ML 750 MG/150 ML BAG IVPB SCH (15:57)
[2018-11-23] MEDS: Acetaminophen 325 MG TABLET PO PRN (18:05)
[2018-11-23] MEDS ORDERED: rOPINIRole 0.25 MG TABLET PO SCH (21:00)
[2018-11-24] MEDS: Ipratropium/Albuterol Neb 3 ML IH PRN ×2 (03:44→10:53)
[2018-11-24] MEDS: *HR* Enoxaparin 40 MG/0.4 ML SYRINGE SQ SCH (05:22)
[2018-11-24] MEDS: Acetaminophen 325 MG TABLET PO PRN (05:31)
[2018-11-24] MEDS: MethylPREDNISolone 40 MG/ML VIAL IVP SCH ×2 (08:06→12:27)
[2018-11-24] MEDS: (Roflumilast [Daliresp] 500 MCG) PO SCH (08:06)
[2018-11-24] MEDS: amLODIPine 5 MG TABLET PO SCH (08:06)
[2018-11-24] MEDS: Levofloxacin 750 MG/150 ML 750 MG/150 ML BAG IVPB SCH (08:07)
[2018-11-24] MEDS: *HR* LORazepam 1 MG TABLET PO PRN (08:07)
[2018-11-24] MEDS: Budesonide/Formoterol 160/4.5 1 PUFF INH IH SCH (08:12)
[2018-11-24 09:22] VITALS: BP 136/73
--- NOTE | 2018-11-24 11:14 | Discharge Summary ---
Addendum entered and electronically signed by Rashard Young MD 11/24/18 14:31: I have personally performed a face to face evaluation on this patient. I have r eviewed and agree with the care plan. History and Exam by me shows: Patient is feeling much better and wants to go home. Breathing is returned to her baseline. We discussed follow-up and she has understood plan. She has no other symptoms overnight. Discussed care with other providers and/or nursing. Patient has no complaint of chest discomfort, dyspnea, orthopnea, palpitations, nausea or vomiting, constipation or diarrhea, other changes in bowel habits, difficulty with urination, rash or itching, or other new complaints, except as mentioned above. Review of systems is otherwise negative. Examination: (Except as mentioned above): General: In no apparent distress. Alert and oriented 3. Nondiaphoretic. Head: Atraumatic and normocephalic. Respiratory: No use of accessory muscles. Lungs are clear throughout. Normal airflow for herlimited but no wheezing or rhonchi, at this time. Cardiovascular: Regular rate and rhythm without murmur appreciated. Abdomen: Bowel sounds are normal. No hepatosplenomegaly mass or tenderness appreciated. Obese and therefore difficult to palpate deeply. Extremities: No cyanosis clubbing or edema. Skin: Warm and non-diaphoretic with no new lesions noted. We will discharge her with 10 days of antibiotics and a steroid burst. She understands to follow-up with her primary care physician and lace cutter, as scheduled. Original Note: Orders not resulted at time of discharge: Pending orders 11/23/18 09:02 Culture,Blood [] Routine Date of Encounter: 11/24/18 Time of Encounter: 11:10 - Discharge Diagnosis (1) COPD exacerbation Priority: Primary Status: Acute Comments: Improving. Continue oxygen per nasal cannula. Continue inhaled meds. Prednisone 40 mg daily for 5 days and Levaquin 750 mg daily for 10 days. Follow up with nurse practitioner Shon Corrigan within one week (2) Hypertension Priority: Secondary Status: Acute Comments: Controlled with current medication. Monitor blood pressure. Qualifiers: Hypertension type: essential hypertension Qualified Code(s): I10 - Essential (primary) hypertension Hospital course: Ms. Davila is a 68 year old female discharging to home status post COPD exacerbation. Patient is improving and maintaining oxygen sets per nasal cannula. Wears oxygen at 3 L at home. Will continue Levaquin 750 mg daily for 10 days and prednisone 40 mg daily for 5 days. Instructed to follow up with PCP within one week. denies SOB, chest pain, fever, chills, NVD. Discharge discussed with: patient, nurse - Time Spent with Patient Total time spent providing and/or coordinating discharge services: Less than 30 minutes - Discharge Medications Home Medications: Ropinirole HCl [Requip] 0.25 mg PO HS 07/03/15 [History] Cetirizine HCl [Zyrtec] 10 mg PO DAILY 05/24/16 [History] Montelukast [Singulair] 10 mg PO DAILY 05/24/16 [History] Albuterol Sulfate [Proair Hfa] 1 puff IH Q4H PRN 06/17/16 [History] Roflumilast [Daliresp] 500 mcg PO DAILY 09/04/16 [History] Albuterol Neb [Proventil Neb] 2.5 mg IH TID 02/03/17 [History] Sertraline [Zoloft] 100 mg PO DAILY 02/03/17 [History] Meclizine [Antivert] 25 mg PO TID #30 tablet 01/07/18 [Rx] Budesonide/Formoterol 160/4.5 [Symbicort 160/4.5] 2 puff IH BIDR 03/18/18 [History] Estradiol [Estrace] 1 mg PO DAILY 03/18/18 [History] LORazepam [Ativan] 1 mg PO TID PRN 03/18/18 [History] amLODIPine [Norvasc] 10 mg PO DAILY 06/05/18 [History] Amino Acids [Amino Acid] 1 each PO BID 07/18/18 [History] Guaifenesin [Mucinex] 600 mg PO BID 07/18/18 [History] Acetaminophen [Tylenol] 650 mg PO Q6HR PRN tablet 11/24/18 [Rx] Allergies/Adverse Reactions: Allergy/AdvReac Type Severity Reaction Status Date / Time aspirin [ASA] Allergy Nausea Verified 11/23/18 01:02 codeine AdvReac Nausea Verified 11/23/18 01:02 Date of admission: 11/23/18 00:57 Primary care physician: William Corrigan CNP Discharging clinician: Rashard Young Anticipated date of discharge: 11/24/18 - Constitutional Vitals: Temp Pulse Resp BP Pulse Ox 97.5 F L 87 20 136/73 95 11/24/18 09:21 11/24/18 09:21 11/24/18 10:56 11/24/18 09:21 11/24/18 10:56 General appearance: Present: cooperative, A&O X 3, pleasant, no acute distress, answers questions appropriately - Head Head exam: Present: atraumatic, normocephalic - Eye Eye exam: Present: PERRL, conjuntiva pink, sclera anicteric Pupils: Present: PERRL - Neck Neck exam general surgery: Present: supple, trachea midline. Absent: lymphadenopathy - Respiratory Respiratory exam: Present: CTAB. Absent: accessory muscle use, rales, rhonchi, wheezes Additional comments: diminished in bilat bases. - Cardiovascular Cardiovascular exam: Present: RRR, +S1, +S2. Absent: diastolic murmur, gallop, rubs, systolic murmur - GI/Abdominal GI/Abdominal exam: Present: normal bowel sounds, soft, no peritoneal signs. Absent: distended, tenderness - Extremities Exam Extremities exam: Present: warm, radial pulses palpable and symmetrical. Absent: calf tenderness, cyanotic, pedal edema - Neurological Exam Neurological exam: Present: CN II-XII intact, oriented X3, no focal deficits. Absent: pronater drift, facial droop, speech deficit - Skin Skin exam: Present: dry, intact - Patient Status Disposition: Home, Self-Care Condition: Fair Functional capacity at discharge: independent ambulation Overall status at discharge: patient is progressing back to baseline - Discharge Instructions Forms: ED Satisfaction Letter - Diet and Activity Activity: increase activity as tolerated Diet: advance to your usual diet
== END 2018-11-24 12:37 | disposition home or self-care (01) ==
LOC: EMEROOGRE 21:40 → INPGRE 21:40
PROVIDERS: ADMIT Internal Medicine; ATTEND Internal Medicine